=== PATIENT | male | born 1955 | race Two or more races ===

== ENCOUNTER 2021-08-12 12:41 | Outpatient (REF) | payer OTHER, SELFPAY ==
--- NOTE | ~2021-08-12 | XR_ITS ---
EXAMINATION: XR SHOULDER, RIGHT CLINICAL INFORMATION: Pain COMPARISON: None TECHNIQUE: AP external rotation, Grashey, scapular Y, and axillary views of the right shoulder. FINDINGS: Bone alignment is normal. No fracture or dislocation is seen. The glenohumeral joint is normal. There is arthritis at the acromioclavicular joint. There is a small undersurface osteophyte. Soft tissues are unremarkable. XR/XR shoulder RT min 2V IMPRESSION: Arthritis at the acromioclavicular joint.
== END 2021-08-12 12:42 | disposition home or self-care (01) ==
LOC: HO.XRAY 12:41
PROVIDERS: PCP Internal Medicine; Visit Provider Internal Medicine
DX: M25.511 Pain in right shoulder (principal)
CPT/HCPCS: 73030

== ENCOUNTER → 2021-09-16 12:30 | Outpatient (BNVA) | payer OTHER, SELFPAY | PROVIDERS: PCP Internal Medicine; Visit Provider Orthopaedic Surgery | DX: M67.911 Unspecified disorder of synovium and tendon, right shoulder (principal); M67.912 Unspecified disorder of synovium and tendon, left shoulder; M75.40 Impingement syndrome of unspecified shoulder; M17.0 Bilateral primary osteoarthritis of knee | CPT/HCPCS: 20610; 99202; J1100 ==

== ENCOUNTER → 2021-09-30 10:49 | Outpatient (BNVA) | payer OTHER, SELFPAY | PROVIDERS: PCP Internal Medicine; Visit Provider Orthopaedic Surgery | DX: M17.0 Bilateral primary osteoarthritis of knee (principal); M75.40 Impingement syndrome of unspecified shoulder | CPT/HCPCS: 20610; 99212; J1100 ==

== ENCOUNTER 2022-02-16 12:42 | Outpatient (REF) | payer OTHER, SELFPAY ==
--- NOTE | ~2022-02-16 | XR_ITS ---
EXAMINATION: XR SHOULDER, LEFT CLINICAL INFORMATION: Left shoulder pain. COMPARISON: None TECHNIQUE: Three views of the left shoulder. FINDINGS: The bones and soft tissues appear unremarkable. No fracture identified. Glenohumeral alignment is anatomic with normal joint space. Mild degenerative change of the acromioclavicular joint. No abnormal soft tissue calcifications. XR/XR shoulder LT min 2V IMPRESSION: Mild degenerative change of the acromioclavicular joint.
== END 2022-02-16 12:43 | disposition home or self-care (01) ==
LOC: HO.HOSX 12:42
PROVIDERS: Visit Provider Physician Assistant
DX: M19.011 Primary osteoarthritis, right shoulder (principal); M19.012 Primary osteoarthritis, left shoulder
CPT/HCPCS: 20610; 73030; 99212; J1020

== ENCOUNTER 2022-05-11 11:46 | Outpatient (REF) | payer MEDICARE, OTHER, SELFPAY ==
--- NOTE | ~2022-05-11 | XR_ITS ---
EXAMINATION: XR SHOULDER, RIGHT CLINICAL INFORMATION: Pain. COMPARISON: None TECHNIQUE: AP external rotation, Grashey, scapular Y, and axillary views of the right shoulder. FINDINGS: The bones and soft tissues are normal. No fracture. Glenohumeral and acromioclavicular joint arthritis. No abnormal soft tissue calcifications. XR/XR shoulder RT min 2V IMPRESSION: Glenohumeral and acromioclavicular arthritis.
== END 2022-05-11 11:47 | disposition home or self-care (01) ==
LOC: HO.XRAY 11:46
PROVIDERS: PCP Internal Medicine; Visit Provider Student in an Organized Health Care Education/Training Program
DX: M25.511 Pain in right shoulder (principal)
CPT/HCPCS: 73030

== ENCOUNTER → 2022-05-18 11:44 | Outpatient (BNVA) | payer MEDICARE, MEDICAID, OTHER, SELFPAY | PROVIDERS: PCP Internal Medicine; Visit Provider Physician Assistant | DX: M19.011 Primary osteoarthritis, right shoulder (principal); M25.511 Pain in right shoulder | CPT/HCPCS: 99212 ==

== ENCOUNTER → 2022-06-06 11:50 | Outpatient (BNVA) | payer MEDICARE, OTHER, SELFPAY | PROVIDERS: PCP Internal Medicine; Visit Provider Orthopaedic Surgery | DX: M75.40 Impingement syndrome of unspecified shoulder (principal); M19.012 Primary osteoarthritis, left shoulder; M19.011 Primary osteoarthritis, right shoulder; E78.00 Pure hypercholesterolemia, unspecified | CPT/HCPCS: 20610; 99212; J1100 ==

== ENCOUNTER 2022-06-15 12:21 | Outpatient (REF) | payer MEDICARE, OTHER, SELFPAY ==
--- NOTE | 2022-06-15 10:00 | EMG_ITS ---
Please see scanned EMG / Nerve Conduction Report. MTDD
== END 2022-06-15 12:22 | disposition home or self-care (01) ==
LOC: HO.NEURO 12:21
PROVIDERS: PCP Internal Medicine; Visit Provider Registered Nurse
DX: R20.0 Anesthesia of skin (principal)
CPT/HCPCS: 95885; 95910

== ENCOUNTER → 2022-06-16 07:45 | Outpatient (BNVA) | payer MEDICARE, OTHER, SELFPAY | PROVIDERS: PCP Internal Medicine; Visit Provider Orthopaedic Surgery | DX: M17.0 Bilateral primary osteoarthritis of knee (principal); M75.41 Impingement syndrome of right shoulder; E78.00 Pure hypercholesterolemia, unspecified | CPT/HCPCS: 20610; 99212; J1100 ==

== ENCOUNTER 2022-07-06 11:00 | Outpatient (RCR) | payer MEDICARE, MEDICAID, OTHER, SELFPAY ==
--- NOTE | 2022-06-15 10:35 | MHC.PT.EP ---
[facility] [place] Office [place] Office [place] Office [address] Sridevi Velázquez [address] [phone] F: [phone] F: [phone] F: [phone] F: [phone] Physical Therapy Plan of Care Date of Evaluation: Date of Surgery: Diagnosis: Rt SH IMPINGEMENT Assessment: 66 YO MALE REF TO PT W Rt SH IMPINGEMENT SYNDROME- HE CURRENTLY WORKS 2 PART-TIME JOBS (TOTALLING 40 HRS/WK) AT LOCAL [employer]. Pt IS Rt HAND DOMINANT. OBJECTIVE FINDINGS: DECR POSTURE AWARENESS, WEAKNESS IN POST RC/ SCAP MM, LIMITED ROM Rt SH , (+) IMPINGEMENT SIGN Rt SH, (+) SOFT TISSUE IRRIT RT ANT GH/ UT, AND PAIN IN RT ANT GH/ BICIPITAL TENDON REGION. FUNCTIONALLY, Pt IS LIMITED W SLEEPING- ESPEC Rt SL, LIFTING OBJECTS AT WORK, REACHING POSTERIORLY OR W OVERHEAD TASKS. Pt WOULD BENEFIT FROM PT TO ADDRESS THE ABOVE FINDINGS, EASE SOFT TISSUE IRRIT/ PAIN MGMT, AND DEV A PROGR HEP/ SX MGMT TECHN. Frequency and Duration: The patient will be seen 2x WK x 5 WKS Short Term Goals: *DECREASE Pt'S Rt SH PAIN TO A 2-3/10 *IMPROVE POSTURAL AWARENESS / BODY MECH TO REDUCE GH/ CERV STRESS *Pt DEMON WFL AROM Rt SH, W ADEQUATE SCAPULAR RETR/PROTRACTION *(-) Rt SH NEER'S AND HAWKIN'S SIGNS Rt SH Coat Joiner Goals: *Pt INDEP W PROGR HEP AND SELF-SX MGMT TECHN *Pt RESUME REG ADLs / WORK TASKS EVIDENT W IMPROVED SPADI SCORE BY 20 POINTS (AT EVAL 128/130) *Pt IMPROVE Rt SH COMPLEX STRENGTH Treatment Plan: Modalities to reduce pain, spasms and effusion. Manual therapy to restore motion and function. Therapeutic exercise to improve strength and flexibility. Neuromuscular re-education for posture and balance. Therapeutic activities to return to functional activities of daily living. Electronically signed by: TAHMINA LANDRY,PT Please sign and return to therapist. Thank you for your referral.
--- NOTE | 2022-07-26 09:19 | MHC.PT.DC ---
[facility] [place] Office [place] Office [place] Office [address] Christy Velázquez [address] [phone] F: [phone] F: [phone] F: [phone] F: [phone] Physical Therapy Discharge Report Diagnosis: Rt SH IMPINGEMENT Date of Surgery: Date of Evaluation: 06/15/22 Date of Discharge: 07/26/22 Treatments to Date: 6 Cancellations to Date: 3 No Shows to Date: 3 Discharge Status: Improved Function Independent with HEP Visit Non-compliance Discharge Summary: THE Pt RESPONDED WELL TO PT INTERVENTION, INCLUDING MAN TECHN / STM, KT APPLIC FOR POSTURAL FEEDBACK/ SOFT TISSUE EASE AND BODY MECHANICS ED TO REDUCE SHOULDER STRESS W WORK SITE TASKS- THE Pt DEMON IMPROVED Rt SH AROM AND NOTED HE COULD BREATHE BETTER AFTER TREATMENTS/ MORE MOBILE IN HIS THORACIC REGION- HE HAS A THOROUGH HEP AND WAS COMPLIANT WITH IT AT LAST ATTENDED APPT- THE Pt HAS NOT ATTENDED LAST FEW SCHED PT APPTS, DESPITE OUR PHONE CALL REMINDERS. Electronically signed by: TAHMINA LANDRY,PT Please sign and return to therapist. Thank you for your referral.
== END 2022-07-26 09:19 | disposition home or self-care (01) ==
LOC: HO.PT 11:00
PROVIDERS: PCP Internal Medicine; Visit Provider Orthopaedic Surgery
DX: M75.40 Impingement syndrome of unspecified shoulder (principal)
CPT/HCPCS: 97035; 97110; 97140; 97162

== ENCOUNTER → 2022-09-26 08:57 | Outpatient (BNVA) | payer OTHER, SELFPAY | PROVIDERS: PCP Internal Medicine; Visit Provider Orthopaedic Surgery | DX: M17.0 Bilateral primary osteoarthritis of knee (principal); M25.511 Pain in right shoulder; M25.512 Pain in left shoulder | CPT/HCPCS: 20610; 99212; J1100 ==

== ENCOUNTER 2023-09-18 08:21 | Outpatient (REF) | payer OTHER, SELFPAY | END 2023-09-18 08:22 | disposition home or self-care (01) | LOC: HO.HOSX 08:21 | PROVIDERS: Visit Provider Orthopaedic Surgery | DX: Z13.89 Encounter for screening for other disorder (principal) ==

== ENCOUNTER 2023-10-30 10:49 | Outpatient (AMB) | payer MEDICARE, SELFPAY ==
--- NOTE | 2023-10-30 11:30 | MHC.OFFVIS ---
Intake Visit Reasons: OV - Bilateral Knee OA - Last Injection 09/26/22 Intake Note: Eldon is a 68 year old male who presents today for a follow up of his bilateral knee OA w/ Varus alignment. Last injections done in bilateral knees on 09/26/22. Allergies No Known Allergies [No Known Allergies*] Allergy (Verified 09/26/22 09:07) HPI HPI OV - Bilateral Knee OA - Last Injection 09/26/22: Details: Eldon is a 68 year old male who presents today for a follow up of his bilateral knee OA w/ Varus alignment. Last injections done in bilateral knees on 09/26/22. 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 Physical Exam Const General: no acute distress and alert Orientation/consciousness: patient oriented x3 Neuro General: patient oriented x3 Extrem Other: Bilateral Knees: Mild-moderate TTP medial compartment Mild antalgic gait Psych Appearance: grossly normal Affect: normal affect Attitude: cooperative Office Procedures Joint Injection/Drain Joint Injection/Drain Details: Injected 1 mL of Decadron and 3 mL 1% lidocaine and 3 mL of 0.25% Marcaine. Site was prepped using aseptic technique. Patient tolerated the procedure well. Primary Site: right knee Secondary Site: left knee Approach Used: anterolateral Coding - Large joint - Glenohumeral/Tronchanteric Bursa/Intraarticular Procedure code (CPT) selection complete Assessment & Plan Assessment & Plan (1) Osteoarthritis of knees, bilateral: Code(s): M17.0 - Bilateral primary osteoarthritis of knee Category: Medical Plan: This is a 66 year old man with severe bilateral tricompartmental knee OA with chondrocalcinosis and a varus alignment. He had good relief from his steroid injection in the past.. He has pain primarily with prolonged weight-bearing, and he has reduced his workload to accommodate for this. He is planning to retire later this summer. I discussed his diagnosis and treatment options. I recommend repeat injections and he continue activity as tolerated. I injected his bilateral knees today, which he tolerated well. He can follow up prn, at least 3 months for repeat injections. Orders: Orders XR knee standing BI 09/18/23 M25.569 - Pain in unspecified knee XR knee RT 2V 09/18/23 M25.569 - Pain in unspecified knee XR knee LT 2V 09/18/23 M25.569 - Pain in unspecified knee Coding Level of Care Code Est Pt Level 3 (55649) Diagnoses Osteoarthritis of knees, bilateral M17.0 CPT Codes Coding - 60037 Large joint: 75857 - Large joint ([id number]) Coding - Joint 7: 18832 - Glenohumeral/Tronchanteric Bursa/Intraarticular ([id number])
== END 2023-10-30 11:31 | disposition home or self-care (01) ==
PROVIDERS: PCP Internal Medicine; Visit Provider Orthopaedic Surgery
DX: M17.0 Bilateral primary osteoarthritis of knee (principal)
CPT/HCPCS: 20610; 99213

== ENCOUNTER → 2023-10-30 10:49 | Outpatient (BNVA) | payer OTHER, SELFPAY | PROVIDERS: PCP Internal Medicine; Visit Provider Orthopaedic Surgery | DX: M17.0 Bilateral primary osteoarthritis of knee (principal) | CPT/HCPCS: 20610; 99212; J0665; J1100 ==

== ENCOUNTER 2023-10-30 13:49 | Outpatient (AMB) | payer MEDICARE, SELFPAY ==
--- NOTE | 2023-10-30 13:56 | A.OFFVIS_ITS ---
Vital Signs 10/30/23 13:57 Height 5 ft 2.5 in Weight 138 lb 14.259 oz BMI 25.0 Intake Visit Reasons: Epigastric Pains Intake Note: Eldon presents in the office as a new patient for epigastric pains. CC: He is here today for pains in the stomach, cannot eat things with milk - he tries lactaid and now he will have pains and diarrhea - lots of diarrhea. Bloating in the middle of the stomach. He denies any blood in the stool. Nutrition Associate Required: Yes Nutrition Associate Name: [id number] Allergies Fish Containing Products Allergy (Mild, Verified 10/30/23 13:59) Rash HPI Comments Details: 68 y.o M who is here for abd pain and change in bowel habits. Pt reports that for the past 4-5 months every time he eats anything within 15 mins he has R lower side and epigastric pain that is stabbing and twisting assoc with nausea and vomiting. He also has an urge to defecate right away and BMs have been loose. Goes 2-3 times a day. No blood in stool. Reports weight loss of 20 lbs in this duration. Has history of travel to [facility] almost 6 months ago. Last colo 2019 (Dr. Sow) 3 polyps removed. Diverticulosis. 2/3 tubular adenoma. 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 Review of Systems Const All systems reviewed & are unremarkable except as noted in HPI and below Physical Exam Vital Signs: BMI result Body Mass Index 25.0 No apparent distress Nonicteric Abdomen soft, nondistended Alert and oriented x3, normal gait Assessment & Plan Assessment & Plan (1) Chronic diarrhea: Code(s): K52.9 - Noninfective gastroenteritis and colitis, unspecified Category: Medical (2) Unintentional weight loss: Code(s): R63.4 - Abnormal weight loss Category: Medical (3) Abdominal pain: Code(s): R10.9 - Unspecified abdominal pain Category: Medical Plan Differentials include chronic mesenteric ischemia, chronic infection, celiac, IBD, microscopic colitis, malignancy. Plan: -labs ordered as below to evaluate the above -CT angio abdomen pelvis to evaluate mesenteric vasculature -we will also check stool ova and parasite x3 given history of travel right befo re symptom onset -EGD and colonoscopy to be booked for luminal evaluation. PEG prep prescribed and instructions reviewed with the patient as well as his accompanying him. Follow-up after procedures Orders: Orders CT angio abdomen pelvis 10/30/23 R10.9 - Unspecified abdominal pain, R63.4 - Abnormal weight loss Comprehensive Met. Panel 10/30/23 R63.4 - Abnormal weight loss Hepatitis A IgG 10/30/23 R63.4 - Abnormal weight loss Hepatitis B Core Antibody 10/30/23 R63.4 - Abnormal weight loss Hepatitis B Surface Antibody 10/30/23 R63.4 - Abnormal weight loss HIV Ab/Ag 10/30/23 R63.4 - Abnormal weight loss Immunoglobulin A 10/30/23 R63.4 - Abnormal weight loss TSH reflex Free T4 10/30/23 R63.4 - Abnormal weight loss Hemoglobin A1c 10/30/23 R63.4 - Abnormal weight loss IRON PROFILE 10/30/23 R63.4 - Abnormal weight loss Ferritin 10/30/23 R63.4 - Abnormal weight loss Calprotectin, Fecal 10/30/23 R63.4 - Abnormal weight loss Ova and Parasite 10/30/23 K52.9 - Noninfective gastroenteritis and colitis, unspecified Ova and Parasite 10/31/23 K52.9 - Noninfective gastroenteritis and colitis, unspecified Complete Blood Count no Diff 10/30/23 R63.4 - Abnormal weight loss Hepatitis B Surface Antigen 10/30/23 R63.4 - Abnormal weight loss Hepatitis C Antibody 10/30/23 R63.4 - Abnormal weight loss Transglutaminase IgA 10/30/23 R63.4 - Abnormal weight loss C Reactive Protein 10/30/23 R63.4 - Abnormal weight loss Ova and Parasite 11/01/23 K52.9 - Noninfective gastroenteritis and colitis, unspecified Medications: New peg 3350-electrolytes 236-22.74-6.74 -5.86 gram (Golytely) as per split prep instructions, until fecal effluent is clear 240 mL PO Q10M 4,000 mL 0RF colonoscopy Coding Level of Care Code New Pt Level 4 (68790) Diagnoses Chronic diarrhea K52.9 Unintentional weight loss R63.4 Abdominal pain R10.9
[2023-10-30 13:57] VITALS: BMI 25.0
== END 2023-10-30 15:30 | disposition home or self-care (01) ==
PROVIDERS: PCP Internal Medicine; Visit Provider Internal Medicine
DX: K52.9 Noninfective gastroenteritis and colitis, unspecified (principal); R63.4 Abnormal weight loss
CPT/HCPCS: 99204

== ENCOUNTER 2023-10-30 15:00 | Outpatient (REF) | payer MEDICARE, MEDICAID, SELFPAY ==
[2023-10-30 16:15] LABS: Hematocrit 42.4 % (42.0-52.0); Hemoglobin 15.5 g/dl (14.0-18.0); Mean Corpuscular HGB Conc 36.6 g/dl (31.0-36.0); Mean Corpuscular Hemoglobin 31.9 pg (27.0-33.0); Mean Corpuscular Volume 87.2 fL (80.0-98.0); Mean Platelet Volume 9.6 fL (9.4-12.4); Platelet Count 237 X10*3/uL (160-400); Red Blood Count 4.86 X10*6/uL (4.60-5.80); Red Cell Distribution Width 13.2 % (11.0-16.0); White Blood Count 7.8 X10*3/uL (4.8-10.8)
[2023-10-30 16:41] LABS: Estimated Average Glucose 103 mg/dL; Hemoglobin A1c % 5.2 % (<6.0)
[2023-10-30 16:55] LABS: Alanine Aminotransferase 22 U/L (0-40); Albumin Level 4.6 g/dL (3.5-5.0); Alkaline Phosphatase 133 U/L (39-117); Anion Gap 12 (12-20); Aspartate Amino Transferase 18 U/L (5-37); Bilirubin Total 0.6 mg/dL (0.0-1.0); Blood Urea Nitrogen 22 mg/dL (9-16); C Reactive Protein 0.12 mg/dL (< or = 0.50); Calcium 9.7 mg/dL (8.4-10.2); Carbon Dioxide 25 mmol/L (22-29); Chloride 107 mmol/L (96-108); Estimated Glomerular Filt Rate > 60; Glucose Random 128 mg/dL (60-115); Iron 62 mcg/dL (45-160); Percent Iron Saturation 27 % (15-50); Potassium 4.1 mmol/L (3.3-5.1); Sodium 140 mmol/L (135-145); Total Iron Binding Capacity 233 mcg/dL (228-428); Total Protein 7.8 g/dL (6.5-8.0); Unsaturated Iron Binding 171 ug/dL
[2023-10-30 17:06] LABS: Ferritin 119 ng/mL (20-250); TSH reflex Free T4 0.63 uIU/mL (0.32-4.0)
[2023-10-31 05:22] LABS: HBS Num1 0.71 mIU/mL (0-7.99); HBsAGNum1 0.36 S/CO (0.00-0.99); HIV AB/AG Nonreactive (Nonreactive); HIV Num 1 0.06 S/CO (0.00-0.99); Hepatitis B Core Antibody Nonreactive (Nonreactive); Hepatitis B Surface Antigen Negative (Negative); ~HepC Num1 0.17 S/CO (0.00-0.79); ~Hepatitis B Surface Antibody NONREACTIVE (Nonreactive); ~Hepatitis C Antibody Nonreactive (Nonreactive)
[2023-10-31 05:30] LABS: Hepatitis A Antibody IgG REACTIVE (Nonreactive); ~Hepatitis A Antibody IgG 9.35 S/CO (0.00-0.99)
[2023-11-01 14:23] LABS: Immunoglobulin A 215 mg/dL (70-320)
[2023-11-01 20:09] LABS: Transglutaminase IgA <1.0 U/mL
== END 2023-10-30 15:01 | disposition home or self-care (01) ==
LOC: HO.LAB 15:00
PROVIDERS: PCP Internal Medicine; Visit Provider Internal Medicine
DX: R63.4 Abnormal weight loss (principal); R10.13 Epigastric pain; K52.9 Noninfective gastroenteritis and colitis, unspecified
CPT/HCPCS: 36415; 80053; 82728; 82784; 83036; 83540; 84443; 85027; 86140; 86364; 86704; 86706; 86708; 86803; 87340; 87389; 99202

== ENCOUNTER 2024-03-04 13:13 | Outpatient (REF) | payer MEDICARE, SELFPAY | END 2024-03-04 13:14 | disposition home or self-care (01) | LOC: HO.LNP 13:13 | PROVIDERS: Visit Provider Internal Medicine | DX: K52.9 Noninfective gastroenteritis and colitis, unspecified (principal) | CPT/HCPCS: 87177; 87209 ==

== ENCOUNTER 2024-03-05 13:19 | Outpatient (REF) | payer MEDICARE, SELFPAY | END 2024-03-05 13:20 | disposition home or self-care (01) | LOC: HO.LNP 13:19 | PROVIDERS: Visit Provider Internal Medicine | DX: K52.9 Noninfective gastroenteritis and colitis, unspecified (principal) | CPT/HCPCS: 87177; 87209 ==

== ENCOUNTER 2024-03-06 13:20 | Outpatient (REF) | payer MEDICARE, SELFPAY | END 2024-03-06 13:21 | disposition home or self-care (01) | LOC: HO.LNP 13:20 | PROVIDERS: Visit Provider Internal Medicine | DX: K52.9 Noninfective gastroenteritis and colitis, unspecified (principal) | CPT/HCPCS: 87177; 87209 ==

== ENCOUNTER 2024-03-20 12:48 | Outpatient (REF) | payer MEDICARE, SELFPAY ==
[2024-03-26 23:13] LABS: Calprotectin, Fecal 83 mcg/g
== END 2024-03-20 12:49 | disposition home or self-care (01) ==
LOC: HO.LNP 12:48
PROVIDERS: Visit Provider Internal Medicine
DX: R63.4 Abnormal weight loss (principal)
CPT/HCPCS: 83993

== ENCOUNTER 2024-04-02 09:37 | Day surgery (SDC) | payer MEDICARE, SELFPAY ==
--- NOTE | 2024-04-02 10:33 | MHC.SHP ---
Pre-Procedural Eval Section A - 24 Hr Update-Section A only Date of Service: 04/02/24 Section B - Complete if H&P > 30 days Chief Complaint: Noninfective gastroenteritis and colitis, unspecif Details of Present Illness: High cholesterol Present Medications: see Short Stay Collaborative assessment Allergies: Allergies Allergy/AdvReac Type Severity Reaction Status Date / Time Fish Containing Products Allergy Mild Rash Verified 10/30/23 13:59 Review of Systems Review of Systems Comment: Ten point ROS negative Exam Exam Comment: Gen appear: No acute distress HEENT: no icterus Chest: No overt resp distress Abd: soft, nontender, nondistended Psych: Stable affect, answering questions appropriately Neuro: A/Ox3 noted to move all extremities spontaneously Ext: no peripheral edema Plan Diagnosis/Plan: Unchanged I have reviewed the history and physical and performed a pertinent physical examination on my patient. No changes have occurred unless specified. Time Spent With Patient Time: Total time managing care of this patient today ____ minutes.
--- NOTE | 2024-04-02 11:20 | HO.ANESPROP2 ---
Documented by User: Alejandra Tiwari NP 04/01/24 09:40 HPI - Anesthesia Eval Consult details Narrative: 68yo M for Upper Endoscopy and Colonoscopy [facility] Active Problems Active Problems: All Active Problems Chronic diarrhea (Acute) Unintentional weight loss (Acute) Abdominal pain (Acute) Arthritis of right glenohumeral joint (Acute) Snoring (Acute) Dermatitis (Acute) Allergic rhinitis (Acute) Chronic pain syndrome (Acute) Hypertension (Acute) High cholesterol (Acute) Osteoarthritis of knees, bilateral (Acute) Shoulder impingement syndrome (Acute) Osteoarthritis of shoulders, bilateral (Acute) Past Medical History Medical History High cholesterol Surgical History Surgical History Hx of colonoscopy Social History Social History Are you a primary child care leader to a significant other at home: No Do you presently have visiting nurse or other home services: No Patient Tobacco Use Status: Never used Tobacco Have you been hit, kicked, punched, or otherwise hurt by someone within the past year? 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 Meds Allergies Allergy/AdvReac Type Severity Reaction Status Date / Time Fish Containing Products Allergy Mild Rash Verified 10/30/23 13:59 Home Medications ?Medication ?Instructions ?Recorded ?Confirmed ?Last Taken ?Type acetaminophen 650 mg 1,300 mg PO Q8H PRN Pain, Moderate 09/16/21 04/02/24 Unknown History tablet,extended release (Arthritis Pain Relief (acetaminophen) ER) atorvastatin 20 mg tablet 20 mg PO DAILY 09/16/21 04/02/24 Unknown History carbamide peroxide 6.5 % ear drops 5 drp otic (ears) BID 09/16/21 04/02/24 Unknown History (Ear Drops (carbamide peroxide)) ergocalciferol (vitamin D2) 1,250 1,250 mcg PO QWEEK 09/16/21 04/02/24 Unknown History mcg (50,000 unit) capsule famotidine 20 mg tablet 20 mg PO BID 09/16/21 04/02/24 Unknown History sildenafil 50 mg tablet (Viagra) 50 mg PO DAILY PRN Erectile 09/16/21 04/02/24 Unknown History Dysfunction cholecalciferol (vitamin D3) 25 25 mcg PO DAILY PRN deficit 10/30/23 04/02/24 Unknown History mcg (1,000 unit) capsule (Vitamin D3) cyclobenzaprine 10 mg tablet 10 mg PO BID PRN Muscle Spasm 10/30/23 04/02/24 Unknown History omeprazole 40 mg capsule,delayed 40 mg PO BID 10/30/23 04/02/24 Unknown History release Assessment and Plan Assessment Anesthesia Assessment: Chart Reviewed Documented by User: Lore Flores DO 04/02/24 11:30 [facility] Past Medical History Medical History High cholesterol Family History Family history of problems with anesthesia: No Surgical History Surgical History Hx of colonoscopy History of Problems with Anesthesia: No Social History Social History Are you a primary child care leader to a significant other at home: No Do you presently have visiting nurse or other home services: No Patient Tobacco Use Status: Never used Tobacco Have you been hit, kicked, punched, or otherwise hurt by someone within the past year? 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 Meds Allergies Allergy/AdvReac Type Severity Reaction Status Date / Time Fish Containing Products Allergy Mild Rash Verified 10/30/23 13:59 Home Medications ?Medication ?Instructions ?Recorded ?Confirmed ?Last Taken ?Type acetaminophen 650 mg 1,300 mg PO Q8H PRN Pain, Moderate 09/16/21 04/02/24 Unknown History tablet,extended release (Arthritis Pain Relief (acetaminophen) ER) atorvastatin 20 mg tablet 20 mg PO DAILY 09/16/21 04/02/24 Unknown History carbamide peroxide 6.5 % ear drops 5 drp otic (ears) BID 09/16/21 04/02/24 Unknown History (Ear Drops (carbamide peroxide)) ergocalciferol (vitamin D2) 1,250 1,250 mcg PO QWEEK 09/16/21 04/02/24 Unknown History mcg (50,000 unit) capsule famotidine 20 mg tablet 20 mg PO BID 09/16/21 04/02/24 Unknown History sildenafil 50 mg tablet (Viagra) 50 mg PO DAILY PRN Erectile 09/16/21 04/02/24 Unknown History Dysfunction cholecalciferol (vitamin D3) 25 25 mcg PO DAILY PRN deficit 10/30/23 04/02/24 Unknown History mcg (1,000 unit) capsule (Vitamin D3) cyclobenzaprine 10 mg tablet 10 mg PO BID PRN Muscle Spasm 10/30/23 04/02/24 Unknown History omeprazole 40 mg capsule,delayed 40 mg PO BID 10/30/23 04/02/24 Unknown History release Exam Exam Date and Time: 04/02/24 1125 Height,Weight and Vital Signs: Height 5 ft 2.5 in Weight 60.781 kg Airway Mallampati Class: II TM Dist: >3cm Neck ROM: Full Denture: Upper and Lower Heart: S1S2 Lungs: CTAB Assessment and Plan Assessment Anesthesia Assessment: Anesthesia Plan Discussed and Chart Reviewed Final Anesthetic Review Family History of Problems with Anesthesia: No History of Problems with Anesthesia: No NPO: Yes ASA Class: II Final Preanesthetic Review: No Changes in Pt Med Stat, Meds/Allgs Chart Reviewed, Consent Obtained/Reviewed (fundraising consultant at bedside for translation) and Anes Risks/Benef Reviewed Patient Risk: Low Procedure Risk: Low Anesthetic Plan Anesthetic Plan: MAC: and Agree w/ Assess. and Plan Disposition: Standard PACU
[2024-04-02 11:23] VITALS: BMI 24.1
[2024-04-02] MEDS: Lactated Ringers 1,000 ML 100 ML IVCONT (11:26)
[2024-04-02 11:37] VITALS: BP 138/76; PULSE 64; RESP 18; TEMP 36.6; O2SAT 99
--- NOTE | 2024-04-02 12:46 | P.OPN-COLO_ITS ---
Colonoscopy Operative Note Operative Note Date of Service: 04/02/24 Narrative: Procedure: Upper endoscopy and colonoscopy Indication: Abd pain, chronic diarrhea, weight loss Endoscopist: Aarti Bellamy MD Anesthesia Provider: Vi Marsh CRNA Anesthesia type: MAC Instrument: [id number] and [id number] EGD Procedure:?? The procedure, indications, preparation and potential complications were reviewed with the patient with the help of a cigar inspector, who indicated understanding and gave written informed consent to proceed. The endoscope was introduced through the mouth, and advanced to the 2nd part of the duodenum. The mucosa was carefully examined on slow withdrawal of the endoscope. The patient tolerated the procedure well. There were no immediate complications.? EGD Findings:? * Esophagus:? Normal esophageal mucosa was noted. The Z-line was at 36 cm. There was a small hiatal hernia with diaphragmatic pinch at 38 cm. Cold forceps biopsies were taken from GE junction. * Stomach:? Normal gastric mucosa. Retroflexion was performed in the cardia that showed Hill grade II hiatal hernia. Random cold forceps biopsies were taken from the stomach. * Duodenum:? Normal duodenal mucosa. Cold forceps biopsies were taken from the duodenal bulb and 2nd portion of the duodenum to rule out celiac sprue. Colonoscopy Procedure:? The patient was then turned for the colonoscopy. A digital rectal exam was performed which was normal.? A distal attachment cap was affixed to the tip of the scope and the colonoscope was then inserted through the anus and advanced through the colon and advanced to the cecum at 80 cm and terminal ileum.? Appendiceal orifice and ileocecal valve were identified. Mucosa was carefully examined under high definition white light as the instrument was slowly withdrawn in a retrograde panoramic fashion. Retroflexion was performed in rectum. The procedure was not difficult. The quality of the prep was BBPS: 2+3+3 = adequate Withdrawal time 7 minutes Limitations: No limitations Findings: Mucosa: Normal colon and terminal ileum mucosa. Cold forceps biopsies were taken from the right and left side of the colon to rule out microscopic colitis. Protruding lesions: * Small internal hemorrhoids without stigmata of recent bleeding. Impression: 1. Normal esophagus (biopsy) 2. Normal stomach (biopsy) 3. Normal duodenum (biopsy) 4. Normal colon and terminal ileum mucosa (biopsy) 5. Internal hemorrhoids Recommendations:?? * Follow-up path results * Avoid NSAIDs * Repeat colonoscopy for CRC screening in 10 years.
[2024-04-02 12:48] VITALS: BP 100/55; PULSE 71; RESP 16; TEMP 36.1; O2SAT 96
[2024-04-02 13:03] VITALS: BP 122/68; PULSE 63; RESP 18; TEMP 36.3; O2SAT 98
== END 2024-04-02 13:31 | disposition home or self-care (01) ==
PROVIDERS: Visit Provider Internal Medicine
PROC: (CPT 43239; principal; 2024-04-02 13:10)
DX: K52.9 Noninfective gastroenteritis and colitis, unspecified (principal); K44.9 Diaphragmatic hernia without obstruction or gangrene; R63.4 Abnormal weight loss; R19.4 Change in bowel habit; K64.8 Other hemorrhoids; I10 Essential (primary) hypertension; E78.00 Pure hypercholesterolemia, unspecified
CPT/HCPCS: 43239; 45380; 88305; 88313; 88342; J1100; J1596; J2003; J2704

== ENCOUNTER → 2024-04-02 09:37 | Outpatient (BNV) | payer MEDICARE, SELFPAY | PROVIDERS: Visit Provider Internal Medicine | DX: R10.9 Unspecified abdominal pain (principal); K52.9 Noninfective gastroenteritis and colitis, unspecified; K64.8 Other hemorrhoids; R63.4 Abnormal weight loss | CPT/HCPCS: 43239; 45380 ==

== ENCOUNTER 2024-04-17 12:30 | Outpatient (AMB) | payer MEDICARE, SELFPAY ==
--- NOTE | 2024-04-17 12:38 | MHC.OFFVIS ---
Vital Signs 04/17/24 12:42 Height 5 ft Weight 140 lb BMI 27.3 BP 149/71 H Blood Pressure Location Lt brachial Position Sitting Pulse 62 Intake Visit Reasons: egd/colo Intake Note: Patient follow up for ED/Colonoscopy results. Patient cc; abdominal pain with some diarrhea on and off. Denies any other GI issues for today visit. Assessment Analyst Required: Yes Accompanied by: Self / Same As Patient Allergies Fish Containing Products Allergy (Mild, Verified 04/17/24 12:37) Rash HPI Comments Details: 68 y.o M who is here for abd pain and change in bowel habits. Pt reports that for the past 4-5 months every time he eats anything within 15 mins he has R lower side and epigastric pain that is stabbing and twisting assoc with nausea and vomiting. He also has an urge to defecate right away and BMs have been loose. Goes 2-3 times a day. No blood in stool. Reports weight loss of 20 lbs in this duration. Has history of travel to [place] almost 6 months ago. Last colo 2018 (Dr. Sow) 3 polyps removed. Diverticulosis. 2/3 tubular adenoma. 04/02/24: 1. Normal esophagus (biopsy) 2. Normal stomach (biopsy) 3. Normal duodenum (biopsy) 4. Normal colon and terminal ileum mucosa (biopsy) 5. Internal hemorrhoids A. Duodenum, biopsy: Duodenal mucosa with mildly increased intraepithelial lymphocytes and preserved villous architecture. See comment. B. Stomach, random, biopsy: - Antral-type and oxyntic mucosa with severe chronic active inflammation and focal intestinal metaplasia; negative for dysplasia. - Positive for H pylori. C. GE junction, biopsy: - Cardiac-type mucosa with moderate chronic active inflammation; no intestinal metaplasia seen. - Squamous mucosa within normal limits. D. Colon, right, biopsy: Colonic mucosa within normal limits. E. Colon, left, biopsy: Colonic mucosa within normal limits. Comment: The lymphocytes in the duodenum are likely secondary to the H. pylori infection. 04/17/2024: Seen with the help of stain sprayer. Results of EGD.colo reviewed. Reviewed indication for H Pylori tx given age, ethnicity and presence of focal 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 Review of Systems Const All systems reviewed & are unremarkable except as noted in HPI and below Physical Exam Vital Signs: Last Vital Signs Pulse 62 04/17/24 12:42 BP 149/71 H 04/17/24 12:42 BMI result Body Mass Index 27.3 No apparent distress Nonicteric Abdomen soft, nondistended Alert and oriented x3, normal gait Assessment & Plan Assessment & Plan (1) H. pylori infection: Code(s): A04.8 - Other specified bacterial intestinal infections Category: Medical (2) Abdominal pain: Code(s): R10.9 - Unspecified abdominal pain Category: Medical (3) Gastritis: Code(s): K29.70 - Gastritis, unspecified, without bleeding Category: Medical (4) Intestinal metaplasia of body of stomach without dysplasia: Code(s): K31.A12 - Gastric intestinal metaplasia without dysplasia, involving the body (corpus) Category: Medical (5) Colon cancer screening: Code(s): Z12.11 - Encounter for screening for malignant neoplasm of colon Category: Medical Plan # Discussed indication for tx. Pt will be prescribed quad therapy as below x 14 days followed by test of cure. Plan: - Omeprazole 40mg BID - Tetracycline 500mg QID - Metronidazole 250mg QID - Bismuth Subsalicylate 524mg QID - Written instructions also provided to the pt ( at home can help with instructions in Mozambican) - KARISHMA to be booked 2-3 weeks AFTER completing the above therapy. # No polyps noted on colo. Next colo due in 10 years i.e 2033. Follow up PRN if KARISHMA negative. Medications: New omeprazole 20 mg PO BID 28 caps 0RF 14 days bismuth subsalicylate 2 tabs PO QID 112 tabs 0RF 14 days tetracycline 500 mg PO QID 56 caps 0RF 14 days metronidazole 250 mg PO QID 56 tabs 0RF 14 days Patient Instructions: 14 days of therapy (should not start any of these until has ALL 4 meds filled) : - Omeprazole 40mg BID - Tetracycline 500mg 4 times a day (avoid sunburn while taking) - Metronidazole 250mg 4 times a day (avoid all alcohol while taking, can take with food to avoid nausea) - Bismuth Subsalicylate 524mg 4 times a day (may turn stools black) Coding Level of Care Code Est Pt Level 4 (16796) Diagnoses H. pylori infection A04.8 Abdominal pain R10.9 Gastritis K29.70 Intestinal metaplasia of body of stomach without dysplasia K31.A12 Colon cancer screening Z12.11
[2024-04-17 12:42] VITALS: BP 149/71; PULSE 62; BMI 27.3
== END 2024-04-17 13:12 | disposition home or self-care (01) ==
PROVIDERS: PCP Internal Medicine; Visit Provider Internal Medicine
DX: A04.8 Other specified bacterial intestinal infections (principal); R10.9 Unspecified abdominal pain; K29.70 Gastritis, unspecified, without bleeding; K31.A12 Gastric intestinal metaplasia without dysplasia, involving the body (corpus); Z12.11 Encounter for screening for malignant neoplasm of colon
CPT/HCPCS: 99214

== ENCOUNTER → 2024-04-17 12:30 | Outpatient (BNVA) | payer MEDICARE, SELFPAY | PROVIDERS: PCP Internal Medicine; Visit Provider Internal Medicine | DX: Z12.11 Encounter for screening for malignant neoplasm of colon (principal); K31.A12 Gastric intestinal metaplasia without dysplasia, involving the body (corpus); K29.70 Gastritis, unspecified, without bleeding; R10.9 Unspecified abdominal pain; A04.8 Other specified bacterial intestinal infections | CPT/HCPCS: 99212 ==

== ENCOUNTER 2024-05-30 08:49 | Outpatient (REF) | payer MEDICARE, SELFPAY ==
[2024-05-31 11:56] LABS: H Pylori Breath Test Negative (Negative)
== END 2024-05-30 08:50 | disposition home or self-care (01) ==
LOC: HO.LNP 08:49
PROVIDERS: PCP Internal Medicine; Visit Provider Internal Medicine
DX: A04.8 Other specified bacterial intestinal infections (principal)
CPT/HCPCS: 83013; 99211

== ENCOUNTER 2024-05-30 08:49 | Outpatient (AMB) | payer MEDICARE, SELFPAY ==
--- NOTE | 2024-05-30 09:05 | AM.OFFVISNUR ---
Intake Visit Reasons: H.pylori Breath Test Intake Note: Patient presents for collection of H Pylori breath test. Patient has been fasting for 1 hour (nothing to eat, drink, no chewing gum or smoking) has not taken any antacid medication for at least 2 weeks and has no allergies to artificial sweeteners.?? Allergies Fish Containing Products Allergy (Mild, Verified 04/17/24 12:37) Rash Assessment & Plan Assessment & Plan (1) Gastritis: Code(s): K29.70 - Gastritis, unspecified, without bleeding Category: Medical (2) H. pylori infection: Code(s): A04.8 - Other specified bacterial intestinal infections Category: Medical Plan Patient presents for collection of H Pylori breath test. Patient has been fasting for 1 hour (nothing to eat, drink, no chewing gum or smoking) has not taken any antacid medication for at least 2 weeks and has no allergies to artificial sweeteners.???This test checks for an overgrowth of bacteria in your stomach. We all have bacteria but some may have more than others. It is treatable. if the test comes back negative there is nothing else to do. If the test result is positive we will treat you with 2 antibiotics and a medication to decrease the acid in your stomach (PPI) for 2 weeks. Two weeks after you have completed the treatment we will retest you to make sure the overgrowth has resolved. Orders: Orders H Pylori Breath Test Today Patient Instructions: Process for specimen collection and reason for testing was explained to the patient. Specimen collection. Patient instructed to take a deep breath and then exhale into the blue bag, filling it up as much as possible. Patient instructed to drink a mixture of water and the artificial sweetener with a straw. A 15 minute wait period was observed. Patient instructed to take a deep breath and then exhale into the pink bag, filling it up as much as possible.??
== END 2024-05-30 09:18 | disposition home or self-care (01) ==
PROVIDERS: PCP Internal Medicine; Visit Provider Internal Medicine
DX: K29.70 Gastritis, unspecified, without bleeding (principal); A04.8 Other specified bacterial intestinal infections

== ENCOUNTER 2024-08-12 12:51 | Outpatient (AMB) | payer MEDICARE, SELFPAY ==
--- NOTE | 2024-08-12 12:55 | MHC.OFFVIS ---
Intake Visit Reasons: Inj - Bilateral Knee OA Intake Note: Eldon is a 68 year old male who presents today for a follow up of his bilateral knee OA w/ Chondrocalcinosis and a Varus alignment. Last injections administered on 10/30/2023 Allergies Fish Containing Products Allergy (Mild, Verified 08/12/24 13:01) Rash HPI HPI Inj - Bilateral Knee OA: Details: Eldon is a 68 year old male who presents today for a follow up of his bilateral knee OA w/ Chondrocalcinosis and a Varus alignment. Last injections administered on 10/30/2023. He states they are helping. He would like to repeat injections today. 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 Physical Exam Extrem Other: Varus alignment bilaterally with mild tenderness to palpation medial compartment bilateral knees Office Procedures Joint Inj/Aspir; Non-Pain Clin Joint Injection/Drain Details: Injected 1 mL of Decadron and 3 mL 1% lidocaine and 3 mL of 0.25% Marcaine. Site was prepped using aseptic technique. Patient tolerated the procedure well. Shoulders, Hips, Knees, Knee Large Joint Injection : Bilateral Knee Coding Procedure code (CPT) selection complete Assessment & Plan Assessment & Plan (1) Osteoarthritis of knees, bilateral: Code(s): M17.0 - Bilateral primary osteoarthritis of knee Category: Medical Plan: I injected bilateral knees today. Continue activity as tolerated. Follow up 3-4 months for repeat injections should he so desire. Coding Level of Care Code Est Pt Level 3 (53834) Diagnoses Osteoarthritis of knees, bilateral M17.0 CPT Codes Shoulders, Hips, Knees, - Knee Large Joint Injection : Bilateral Knee ([id number])
--- OUTSIDE RECORDS SUMMARY | 2024-08-12 14:59 | XMS_ITS | Encounter Summary ---
Author Organization [employer] [facility] Address [address] [facility] [address] [place] [address] Care Team Providers Care Heddle Machine Operator Name Role Phone Belinda Figueroa MD Primary Care Provide r Reason for Visit * Reason Comments Med Refill Encounter Details Date Type Department Care Team ([facility] st Contact Info) Description 07/28/2024 Refill [facility] MEDICINE [address] [place], [place] [phone] Belinda Figueroa MD [address] [place], [place] [phone] Social History Tobacco Use Types Packs/Day Years Used Date Smoking Tobacco: Never Passive Smoke Exposure: Never Smokeless Tobacco: Never Depression Answer Date Recorded Patient Health Questionnaire-9 Score 0 07/05/2023 Patient Health Questionnaire-9 Score 0 07/05/2023 Last PHQ-9: Questionnaire Data Not on file 0 07/05/2023 Housing Stability Answer Date Recorded What is your housing situation today? I have glenny rivera 06/23/[address] you li ve. Do you have problems with any of the following? None of the above 06/23/2023 Food Insecurity Answer Date Recorded Within the past 12 months, y ou worried that your food would run out before you got money to buy more: Never True 06/23/2023 Within the past 12 months,th e food you bought just didn't last and you didn't have enough money to get more: Never True Transportation Answer Date Recorded In the past 12 months, has l ack of transportation kept you from medical appts, meetings, work or from getting things needed for daily living? No 06/23/2023 Utilities Answer Date Recorded In the past 12 months, has t he electric, gas, oil or water company threatened to shut off services in your home? No 06/23/2023 Depression Answer Date Recorded Patient Health Questionnaire-2 Score 0 07/05/2023 Sex and Gender Information Value Date Recorded Sex Assigned at Male 03/28/2022 10:34 AM EDT Legal Sex Male 10:34 AM EDT Gender Identity Male 03/28/2022 10:34 AM EDT Sexual Orientation Choose not to disclose 2021 10:55 AM EST Sexual Orientation Straight 05/09/2022 10 :55 AM EST documented as of this encounter Plan of Treatment Not on file documented as of this encounter Visit Diagnoses Not on filedocumented in this encounter Additional Health Concerns Assessment Noted Time PHQ-9 Depression Total Score: 0 07/05/19 24 10:59 AM EST documented as of this encounter Care Teams Heddle Machine Operator Relationship Specialty Start Date End Date Belinda Figueroa MD [address] [place] [phone] PCP - General Family Medicine 05/03/18 documented as of this encounter
--- OUTSIDE RECORDS SUMMARY | 2024-08-12 14:59 | XMS_ITS | Clinical Summary ---
Author Organization [employer] Address [address] [facility] 7[address] [place] [address] Care Team Providers Care Beef Pusher Name Role Phone Belinda Figueroa MD Primary Care Provide r Allergies Active Allergy Reactions Criticality Noted Date Comments Fish-Derived Products 07/22/2021 Lactose 07/22/2021 Medications cyclobenzaprine (Flexeril) 10 MG tabletIndications :Chronic right shoulder pain TAKE 1 TABLET BY MOUTH TWICE DAILY IN THE MORNING AND AT BEDTIME 60 tablet 05/01/20 23 Active famotidine (Pepcid) 20 MG tablet TAKE 1 TABLET BY MOUTH TWICE DAILY 180 tablet 1 03/04/20 24 Active atorvastatin (Lipitor) 20 MG tabletIndications :Other hyperlipidemia TAKE 1 TABLET BY MOUTH EVERY DAY IN THE MORNING 90 tablet 1 03/04/20 24 Active omeprazole (PriLOSEC) [address] capsuleIndication s:Epigastric pain,Early satiety TAKE 1 CAPSULE BY MOUTH TWICE DAILY BEFORE MEALS, DO NOT BREAK, CRUSH, DISSOLVE OR CHEW 60 capsule 1 05/30/19 25 Active sildenafil (Viagra) 50 MG tabletIndications :Erectile dysfunction, unspecified erectile dysfunction type TAKE 1 TABLET 1 HOUR BEFORE SEXUAL RELATIONS ONCE DAILY NEEDED. 25 tablet 07/10/19 25 Active acetaminophen (Tylenol 8 Hour) 650 MG ER tablet Take 2 tablets (1,300 mg) by mouth every 8 (eight) hours if needed for mild pain. Do not crush, chew, or split.TAKE 2 TABLETS BY MOUTH EVERY 8 HOURS SWALLOW WHOLE DO NOT BREAK, CRUSH, DISSOLVE OR CHEW 90 tablet 07/10/19 25 Active D3-1000 25 MCG (1000 UT) capsule TAKE 1 CAPSULE BY MOUTH EVERY DAY NEEDED 90 capsule 1 07/30/19 25 Active D3-1000 25 MCG (1000 UT) capsule TAKE 1 CAPSULE BY MOUTH EVERY DAY NEEDED 90 capsule 1 01/22/20 24 025 Discontinued Active Problems Problem Noted Date Diagnosed Date Seborrheic dermatitis 07/05/2023 Epigastric pain 07/05/2023 Assessment & Plan (07/05/2023 1:39 PM EST): I advise patient to avoid NSAIDs, spicy and acid food, I advise to eat at the same time every day, I advise to elevate the head of the bed and take medications as prescribe Blurry vision, bilateral 07/05/2023 OA (osteoarthritis) of knee 07/05/2023 Erectile dysfunction 07/05/2023 Other constipation 07/05/2023 Assessment & Plan (07/05/2023 1:40 PM EST): Increase water and fiber on diet Colace BID Chronic right shoulder pain 05/30/202306/2023 Early satiety 05/30/2023 05/30/2023 Inflammatory dermatosis 05/30/2023 05/30/19 24 Primary osteoarthritis of right shoulder 024 05/30/2023 Snoring 05/30/2023 05/30/2023 Encounters Date Type Department Care Team Description 07/28/2024 Refill [facility] MEDICINE [address] [place] [address] Belinda Figueroa MD 07/10/2024 Refill [facility] [address] [place] [phone] Belinda Figueroa MD Erectile dysfunction, unspecified erectile dysfunction type 07/02/2024 Telephone [facility] [address] [place], [place] [phone] Lidia Cespedes [place] August05/29/2024 Refill [facility] MEDIC[facility] [address] [place] [address] Belinda Figueroa MD Epigastric pain; Early satiety 05/24/2024 Refill [facility] [address] [place] [address] Belinda Figueroa MD Erectile dysfunction, unspecified erectile dysfunction type from Last 3 Months Immunizations Name Administration Dates Next Due Influenza injectable quadriv alent preservative free 07/05/2023 Moderna Covid-19 Vaccine 12+ 11/18/2021, 07/15/2021,09/18/2020,2020 Pfizer Covid-19 Vaccine 12+ 07/05/2023 Pneumococcal Conjugate PCV 20 07/05/2023 Tdap 10/06/2020,05/03/2018 Social History Tobacco Use Types Packs/Day Years Used Date Smoking Tobacco: Never Passive Smoke Exposure: Never Smokeless Tobacco: Never Tobacco Cessation:Counseling Given: Not Answered Depression Answer Date Recorded Patient Health Questionnaire-9 [...] Orientation Straight 05/09/2022 10 :55 AM EST Last Filed Vital Signs Vital Sign Reading Time Taken Comments Blood Pressure 148/75 07/05/2023 10:59 AM EST Pulse 57 07/05/2023 10:59 AM EST Temperature 36.4 ??C (97.6 ??F) 07/05/2023 10:[address] Respiratory Rate 16 07/05/2023 10:59 AM EST Oxygen Saturation 96% 07/05/2023 10:59 AM EST Inhaled Oxygen Concentration - - Weight 65 kg (143 lb 3.2 oz) 07/05/2023 10:59 AM EST Height 154.9 cm (5' 1 ) 07/05/2023 10:59 AM EST Body Mass Index 27.06 07/05/2023 10:59 AM EST Plan of Treatment Health Maintenance Due Date Last Done Comments CT Colonography 1956 FIT DNA/Cologuard 1956 FIT 1956 FOBT 1956 Sigmoidoscopy 1956 Alcohol/Substance Use Screening 1968 Zoster Vaccines (1 of 2) 2006 Colonoscopy 08/24/2023 08/23/2018 Colorectal Cancer Screening 08/24/2023 COVID-19 Vaccine ( season) 2024 07/05/2023, 11/18/2021, 07/15/2021, Additional history exists Influenza Vaccine (#1) 2024 07/05/2023 SDOH Screening 06/23/2024 06/23/2023 Depression Screening 07/05/2024 07/05/2023, 07/05/19 24 Tobacco Screening 07/05/2024 07/05/2023 Lipid Panel 08/12/2026 08/12/2021 DTaP/Tdap/Td Vaccines (3 - Td or Tdap) 10/06/2030 10/06/2020, 05/03/2018 RSV Patients and Patients Aged 60 years or older (1 - 1-dose 75+ series) 08/27/2031 Pneumococcal Vaccine: 50+ Years Completed 07/05/2023 Hepatitis C Screening Completed 10/30/2023 HIB Vaccines Aged Out No longer eligi ble based on patient's age to complete this topic HPV Vaccines Aged Out No longer eligi ble based on patient's age to complete this topic Hepatitis A Vaccines Aged Out No long er eligible based on patient's age to complete this topic Hepatitis B Vaccines Aged Out No long er eligible based on patient's age to complete this topic IPV Vaccines Aged Out No longer eligi ble based on patient's age to complete this topic Meningococcal Vaccine Aged Out No guzman shahrzad eligible based on patient's age to complete this topic RSV under 20 months Aged Out No longe r eligible based on patient's age to complete this topic Rotavirus Vaccines Aged Out No longer eligible based on patient's age to complete this topic Procedures Procedure Name Priority Date/Time Associated Diagnosis Comments HELICOBACTER PYLORI, UREA BREATH TEST Routine 05/30/2024 9:20 AM EST HEPATITIS C ANTIBODY Routine 10/30/2023 3:31 PM EDT LIPID PANEL, STANDARD Routine 08/12/2021 10:32 AM EDT HM COLONOSCOPY Routine 08/23/2018 from Last 3 Months or Most Recently Relevant to Health Maintenance Results * Helicobacter pylori, Urea Breath Test (05/30/2024 9:20 AM EST) H. pylori Breath Test Negative Negative [facility] Comment:Antimicrobials, prot on pump inhibitors and bismuthpreparations are known to suppress H. pylori. Ingestingthese medications within two weeks prior to performing thebreath test may produce negative test results. A positiveresult is still clinically valid. 05/30/2024 9:20 AM EST 05/30/2024 1:23 PM EST us Generic External Data Provider LAB BLOOD ORDERAB LES Final Result [facility] [address] [place] [phone] * Hepatitis C Ab (10/30/2023 3:31 PM EDT) Hepatitis C Antibody Nonreactive Nonreactive [facility] Comment:Antibodies to HCV no t detected; does not exclude early acuteHCV infection. 10/30/2023 3:31 PM EDT 10/30/2023 3:31 PM EDT us Generic External Data Provider LAB BLOOD ORDERAB LES Final Result Performing Organization Address City/[facility]/ZIP Co de Phone Number [facility] [address] [place] [phone] * (ABNORMAL) LIPID PANEL, STANDARD (08/12/2021 10:32 AM EDT) Chol/HDLC Ratio 5.4(H) <5.0 (calc) [facility] Cholesterol, Total 204(H) <200 mg/dL [facility] HDL Cholesterol 38(L) > OR = 40 mg/dL [facility] LDL Cholesterol 136(H) mg/dL (calc) [facility] Comment: Reference range: <100 ?? Desirable range <100 mg/dL for primary prevention; ?? <70 mg/dL for patients with CHD or diabetic patients ?? with > or = 2 CHD risk factors. ?? LDL-C is now calculated using the Kg-Daniels ?? calculation, which is a validated novel method providing ?? better accuracy than the Friedewald equation in the ?? estimation of LDL-C. ?? Kg FOSTER et al. DANA. 2013;310(19): 9335-4836 ?? (http://education.[employer] Demand/faq/PZX712) Non-HDL Cholesterol 166(H) <130 mg/dL (calc) [facility] Comment: For patients with diabetes plus 1 major ASCVD risk ?? factor, treating to a non-HDL-C goal of <100 mg/dL ?? (LDL-C of <70 mg/dL) is considered a therapeutic ?? option. Triglycerides 163(H) <150 mg/dL [facility] 08/12/2021 10:3 2 AM EDT us Belinda Sarabia MD LAB BLOOD ORDERABLES Final Result [facility] [address] [place] [address], * Hm Colonoscopy (08/23/2018) us Historical Provider MD HEALTH MAINTENANCE Final Result from Last 3 Months or Most Recently Relevant to Health Maintenance Insurance [facility] HSN FULL [facility] MEDIC[facility] ADVANTAGE Care Teams Beef Pusher Relationship Specialty Start Date End Date Belinda Figueroa MD [address] [place] [phone] PCP - General Family Medicine 05/03/18
--- OUTSIDE RECORDS SUMMARY | 2024-08-12 14:59 | XMS_ITS | Encounter Summary ---
Author Organization [employer] [facility] Address [address] [facility] [address]t [place] [address] Care Team Providers Care Boiler Cleaner Name Role Phone Belinda Figueroa MD Primary Care Provide r Encounter Details Date Type Department Care Team ([facility] st Contact Info) Description 02/02/2023 Orders Only [facility] MEDICINE [address] [place], [place] [phone] Provider, MD Rachel Social History Tobacco Use Types Packs/Day Years Used Date Smoking Tobacco: Never Assessed Sex and Gender Information Value Date Recorded Sex Assigned at Male 03/28/2022 10:34 AM EDT Legal Sex Male 10:34 AM EDT Gender Identity Male 03/28/2022 10:34 AM EDT Sexual Orientation Choose not to disclose 2021 10:55 AM EST Sexual Orientation Straight 05/09/2022 10 :55 AM EST documented as of this encounter Plan of Treatment Not on file documented as of this encounter Procedures Procedure Name Priority Date/Time Associated Diagnosis Comments HM COLONOSCOPY Routine 08/23/2018 documented in this encounter Results * Hm Colonoscopy (08/23/2018) us Historical Provider HEALTH MAINTENANCE Final Result documented in this encounter Visit Diagnoses Not on filedocumented in this encounter Care Teams Boiler Cleaner Relationship Specialty Start Date End Date Belinda Figueroa MD [address] [place] [address] PCP - General Family Medicine 05/03/18 documented as of this encounter
--- OUTSIDE RECORDS SUMMARY | 2024-08-12 14:59 | XMS_ITS | Encounter Summary ---
Author Organization [employer] [facility] Address [address] [place] [address] Care Team Providers Care Skating Carhop Name Role Phone Belinda Figueroa MD Primary Care Provide r Encounter Details Date Type Department Care Team ([facility] st Contact Info) Description 12/13/2022 Orders Only [facility] MEDICINE [address] [place], [place] [phone] Roxy Galaviz LPN Social History Tobacco Use Types Packs/Day Years [...] on filedocumented in this encounter Care Teams Skating Carhop Relationship Specialty Start Date End Date Belinda Figueroa MD [address] [place] [address] PCP - General Family Medicine 05/03/18 documented as of this encounter
--- OUTSIDE RECORDS SUMMARY | 2024-08-12 14:59 | XMS_ITS | Encounter Summary ---
Author Organization [employer] [facility] Address [address] [facility] [address] [place] [address] Care Team Providers Care Perforator Typist Name Role Phone Belinda Figueroa MD Primary Care Provide r Reason for Visit * Reason Comments Med Refill Encounter Details Date Type Department Care Team ([facility] st Contact Info) Description 11/17/2023 Refill [facility] MEDICINE [address] [place], [place] [phone] Belinda Figueroa MD [address] [place], [place] [phone] Erectile dysfunction, unspecified erectile dysfunction type Social History Tobacco Use Types Packs/Day Years [...] documented as of this encounter Visit Diagnoses Diagnosis Erectile dysfunction, unspecified erectile dysfunction type documented in this encounter Additional Health Concerns Assessment Noted Time PHQ-9 Depression Total Score: 0 07/05/19 24 10:59 AM EST documented as of this encounter Care Teams Perforator Typist Relationship Specialty Start Date End Date Belinda Figueroa MD [address] [place] [address] PCP - General Family Medicine 05/03/18 documented as of this encounter
--- OUTSIDE RECORDS SUMMARY | 2024-08-12 14:59 | XMS_ITS | Encounter Summary ---
Author Organization [employer] Address [address] [place] [address] Care Team Providers Care Sales Attendant Building Materials Name Role Phone Belinda Figueroa MD Primary Care Provide r Reason for Visit * Reason Comments Med Refill Encounter Details Date Type Department Care Team ([facility] st Contact Info) Description 05/02/2022 Refill [facility] [address] [place] [address] Ya Carballo FNP [address] [place] [address] Social History Tobacco Use Types Packs/Day Years Used Date Smoking Tobacco: Never Assessed Sex and Gender Information Value Date Recorded Sex Assigned at Male 03/28/2022 10:34 AM EDT Legal Sex Male 10:34 AM EDT Gender Identity Male 03/28/2022 10:34 AM EDT Sexual Orientation Choose not to disclose 2021 10:55 AM EST Sexual Orientation Straight 05/09/2022 10 :55 AM EST COVID-19 Exposure Response Date Recorded In the last 10 days, have yo u been in contact with someone who was confirmed or suspected to have Coronavirus/COVID-19? No / Unsure 05/02/2022 11:46 AM EST documented as of this encounter Miscellaneous Notes * Telephone Encounter - Vivian Quezada DO - 05/02/2022 4:25 PM EST Rx request denied. Pt needs to be seen and re-evaluated. * Telephone Encounter - Roxy Galaviz LPN - 05/02/2022 3:11 PM EST Med not queued as for short term use documented in this encounter Plan of Treatment Not on file documented as of this encounter Visit Diagnoses Not on filedocumented in this encounter Care Teams Sales Attendant Building Materials Relationship Specialty Start Date End Date Belinda Figueroa MD [address] [place] [address] PCP - General Family Medicine 05/03/18 documented as of this encounter
--- OUTSIDE RECORDS SUMMARY | 2024-08-12 14:59 | XMS_ITS | Encounter Summary ---
Author Organization [employer] Address [address] [facility] [address] [place] [address] Care Team Providers Care Social Media Designer Name Role Phone Belinda Figueroa MD Primary Care Provide r Reason for Visit * Reason Comments Med Refill Encounter Details Date Type Department Care Team ([facility] st Contact Info) Description 05/24/2024 Refill [facility] MED & PEDS [address] [place], [place] [phone] Belinda Figueroa MD [address] [place] [address] Erectile dysfunction, unspecified erectile dysfunction type Social [...] documented as of this encounter Care Teams Social Media Designer Relationship Specialty Start Date End Date Belinda Figueroa MD [address] [place] [address] PCP - General Family Medicine 05/03/18 documented as of this encounter
--- OUTSIDE RECORDS SUMMARY | 2024-08-12 14:59 | XMS_ITS | Encounter Summary ---
Author Organization [employer] [facility] Address [address] [facility] 7t [place] [address] Care Team Providers Care Food Service Manager Name Role Phone Belinda Figueroa MD Primary Care Provide r Reason for Visit * Reason Comments Med Refill Encounter Details Date Type Department Care Team (Late st Contact Info) Description 10/06/2022 Refill [facility] MED[facility]INE [address] [place], [place] [phone] Belinda Figueroa MD [address] [place] [address] Social History Tobacco Use Types Packs/Day Years [...] on filedocumented in this encounter Care Teams Food Service Manager Relationship Specialty Start Date End Date Belinda Figueroa MD [address] [place] [address] PCP - General Family Medicine 05/03/18 documented as of this encounter
== END 2024-08-12 13:10 | disposition home or self-care (01) ==
LOC: HO.HOS 12:52
PROVIDERS: PCP Internal Medicine; Visit Provider Orthopaedic Surgery
DX: M17.0 Bilateral primary osteoarthritis of knee (principal)
CPT/HCPCS: 20610

== ENCOUNTER → 2024-08-12 12:51 | Outpatient (BNVA) | payer MEDICARE, SELFPAY | PROVIDERS: PCP Internal Medicine; Visit Provider Orthopaedic Surgery | DX: M17.0 Bilateral primary osteoarthritis of knee (principal); M11.262 Other chondrocalcinosis, left knee; M11.261 Other chondrocalcinosis, right knee | CPT/HCPCS: 20610; J0665; J1100; J2003 ==

== ENCOUNTER 2025-01-20 14:25 | Outpatient (AMB) | payer MEDICARE, SELFPAY ==
--- NOTE | 2025-01-20 14:35 | A.OFFVIS_ITS ---
Intake Visit Reasons: Inj - Bilateral Knee OA last inj 08/12/24 Intake Note: Eldon is a 69 year old male who presents today for repeat bilateral knee injections, last administered on 08/12/24. Patient reports relief with the injections and would like to repeat bilateral knee injections,no further questions at this time. Allergies Fish Containing Products Allergy (Mild, Verified 01/20/25 14:36) Rash HPI HPI Inj - Bilateral Knee OA last inj 08/12/24: Details: Eldon is a 69 year old male who presents today for repeat bilateral knee injections, last administered on 08/12/24. Patient reports relief with the injections and would like to repeat bilateral knee injections,no further questions at this time. 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 Physical Exam Extrem Other: Varus alignment bilaterally with mild tenderness to palpation medial compartment bilateral knees Office Procedures Joint Inj/Aspir; Non-Pain Clin Joint Injection/Drain Details: Injected 1 mL of Decadron and 3 mL 1% lidocaine and 3 mL of 0.25% Marcaine. Site was prepped using aseptic technique. Patient tolerated the procedure well. Shoulders, Hips, Knees, Knee Large Joint Injection : Bilateral Knee Coding Procedure code (CPT) selection complete Assessment & Plan Assessment & Plan (1) Osteoarthritis of knees, bilateral: Code(s): M17.0 - Bilateral primary osteoarthritis of knee Category: Medical Plan: 61-year-old gentleman with bilateral knee pain. He has benefitted from activity modification and injections. I injected bilateral knees today. May follow up in 3-4 months as needed. Coding Level of Care Code Est Pt Level 3 (15877) Diagnoses Osteoarthritis of knees, bilateral M17.0 CPT Codes Shoulders, Hips, Knees, - Knee Large Joint Injection : Bilateral Knee ([id number])
--- OUTSIDE RECORDS SUMMARY | 2025-01-20 16:04 | XMS_ITS | Encounter Summary ---
Author Organization [employer] Address [address] [facility] 7t [place] [address] Care Team Providers Care Behavioral Health Tech Name Role Phone Belinda Figueroa MD Primary Care Provide r Reason for Visit * Reason Comments Med Refill Encounter Details Date Type Department Care Team ([facility] st Contact Info) Description 01/17/2025 Refill [facility] [address] [place], [place] [phone] Belinda Figueroa MD [address] [place], [place] [phone] Primary osteoarthritis of right shoulder Social History Tobacco Use Types Packs/Day Years Used Date Smoking Tobacco: Former Cigarettes Passive Smoke Exposure: Past Smokeless Tobacco: Never Alcohol Use Standard Drinks/Week Comments Never 0 (1 standard drink = 0.6 oz pur e alcohol) Depression Answer Date Recorded Patient Health Questionnaire-9 Score 2 12/12/2024 Patient Health Questionnaire-9 Score 2 12/12/2024 Last PHQ-9: Questionnaire Data Not on file 0 12/12/2024 Housing Stability Answer Date Recorded What is your housing situation today? I have glenny rivera 12/12/[address] you li ve. Do you have problems with any of the following? None of the above 12/12/2024 Food Insecurity Answer Date Recorded Within the past 12 months, y ou worried that your food would run out before you got money to buy more: Never True 12/12/2024 Within the past 12 months,th e food you bought just didn't last and you didn't have enough money to get more: Never True Transportation Answer Date Recorded In the past 12 months, has l ack of transportation kept you from medical appts, meetings, work or from getting things needed for daily living? No 12/12/2024 Utilities Answer Date Recorded In the past 12 months, has t he electric, gas, oil or water company threatened to shut off services in your home? No 12/12/2024 Depression Answer Date Recorded Patient Health Questionnaire-2 Score 0 12/12/2024 Internet Access Answer Date Recorded Internet Access Q1 Yes 12/12/2024 Internet Access Q2 Not on file 12/12/2024 Sex and Gender Information Value Date Recorded Sex Assigned at Male 03/28/2022 10:34 AM EDT Legal Sex Male 10:34 AM EDT Gender Identity Male 03/28/2022 10:34 AM EDT Sexual Orientation Choose not to disclose 2021 10:55 AM EST Sexual Orientation Straight 05/09/2022 10 :55 AM EST documented as of this encounter Plan of Treatment Upcoming Encounters Date Type Department Care Team (Late st Contact Info) Description 02/13/2025 11:30 AM EDT Immunization [facility] [address] [place] [phone] 03/20/2025 10:45 AM EDT Office Visit [facility] [address] [place] [address] Belinda Figueroa MD [address] [place] [phone] documented as of this encounter Visit Diagnoses Diagnosis Primary osteoarthritis of right shoulder documented in this encounter Additional Health Concerns Assessment Noted Time PHQ-9 Depression Total Score: 2 12/13/19 25 10:20 AM EDT documented as of this encounter Care Teams Behavioral Health Tech Relationship Specialty Start Date End Date Belinda Figueroa MD [address] [place] [phone] PCP - General Family Medicine 05/03/18 documented as of this encounter
--- OUTSIDE RECORDS SUMMARY | 2025-01-20 16:04 | XMS_ITS | Clinical Summary ---
Author Organization [facility] Address [address] [address] Phone Care Team Providers Care Hypnotherapist Name Role Phone Belinda Sorensen MD Primary Care Provider Allergies Active Allergy Reactions Criticality Noted Date Comments Fish Derived 07/22/2021 Lactose 07/22/2021 Medications ibuprofen (ADVIL,MOTRIN) 600 MG tablet Take 1 tablet (600 mg total) by mouth every 6 (six) hours as needed for pain (specific location in comments). 20 tablet 8 Active ondansetron (ZOFRAN-ODT) 4 MG disintegrating tablet Take 1 tablet (4 mg total) by mouth every 8 (eight) hours as needed for nausea. 5 tablet 3 Active ondansetron (ZOFRAN-ODT) 4 MG disintegrating tablet Take 1 tablet (4 mg total) by mouth every 8 (eight) hours as needed for nausea. 10 tablet 3 Active Social History Tobacco Use Types Packs/Day Years Used Date Smoking Tobacco: Never Smokeless Tobacco: Never Tobacco Cessation:Counseling Given: Not Answered Alcohol Use Standard Drinks/Week Comments Not Currently 0 (1 standard drink = 0.6 oz pur e alcohol) Education Answer Date Recorded Are you interested in more education? Not on alee e 09/23/2022 Are you concerned about learning? Not on file 09/23/2022 No 09/23/2022 No 09/23/2022 Digital Access Answer Date Recorded No 10/24/2022 No 10/24/2022 Reliable internet access at home? Not on file 10/24/2022 Device with a working camera? Not on file Intimate Partner Violence Answer Date R ecorded Are you denied basic needs s uch as food, clothing, or medical care? No 12/13/2022 In the past 12 months have y ou been in a relationship with a person who hurts, threatens, or tries to control you? No 12/13/2022 Are you denied basic needs s uch as food, clothing, or medical care? No 12/13/2022 In the past 12 months have y ou been in a relationship with a person who hurts, threatens, or tries to control you? No 12/13/2022 Sex and Gender Information Value Date Recorded Sex Assigned at Male 07/20/2017 2:16 PM EST Legal Sex Male 9:53 PM EDT Gender Identity Male 07/20/2017 2:16 PM EST Sexual Orientation Straight 07/20/2017 2: 16 PM EST Last Filed Vital Signs Vital Sign Reading Time Taken Comments Blood Pressure 147/83 12/13/2022 2:25 PM EDT Pulse 53 12/13/2022 2:25 PM EDT Temperature 36.8 C (98.2 F) 12/13/2022 2:25 PM EDT Respiratory Rate 16 12/13/2022 2:25 PM EDT Oxygen Saturation 97% 12/13/2022 2:25 PM EDT Inhaled Oxygen Concentration - - Weight 68 kg (150 lb) 12/13/2022 12:03 PM EDT Height 160 cm (5' 3 ) 07/18/2022 8:42 AM EST Body Mass Index 26.57 07/18/2022 8:42 AM EST Plan of Treatment Not on file Medical Devices Not on file Insurance [employer] HEALTH SAFETY NET FULL Member Subscriber Plan / Payer (Ef fective 2022-Present) Name:Eldon Veronica Relation to Subscriber:Self Name:Eldon Veronica Payer ID:Not on file Group ID:Not on file Type:Medicaid Address: [address] MEDICARE REPLACEMENT [facility] HEALTH SAFETY NET FULL MEDICARE REPLACEMENT [facility] FULL MEDICARE REPLACEMENT [facility] FULL MEDICARE [facility]PLACEMENT [facility] HE[facility]AF[facility] NET FULL Member Subscriber Plan / Payer (Ef fective 2022-) Name:Eldon Veronica Relation to Subscriber:Self Name:Eldon Veronica Payer ID:Not on file Group ID:Not on file Type:Medicaid Address: [address] MEDICARE REPLACEMENT [facility] HEALTH SAFETY NET FULL Member Subscriber Plan / Payer (Ef fective 2022-Present) Name:Eldon Veronica Relation to Subscriber:Self Name:Eldon Veronica Payer ID:Not on file Group ID:Not on file Type:Medicaid Address: [address] MEDICARE REPLACEMENT Care Teams Hypnotherapist Relationship Specialty Start Date End Date Belinda Sorensen MD [address] [place] [phone] PCP - General Internal Medicine 12/15/21 Additional Source Comments The information contained in this document represents components of the legal health record. It is not the complete legal health record.[facility]
--- OUTSIDE RECORDS SUMMARY | 2025-01-20 16:04 | XMS_ITS | Encounter Summary ---
Author Organization [employer] [facility] Address [address] [facility] 7t [place] [address] Care Team Providers Care Clinical Law Professor Name Role Phone Belinda Figueroa MD Primary Care Provide r Encounter Details Date Type Department Care Team (Late Contact Info) Description 02/02/2023 Orders Only [facility] [address] [place] [phone] Provider, MD Rachel Social History Tobacco Use [...] Encounters Date Type Department Care Team (Late Contact Info) Description 02/13/2025 11:30 AM EDT Immunization [address] [phone] 03/20/2025 10:45 AM EDT Office Visit [address] [address] Belinda Figueroa MD [address] [place] [phone] documented as of this encounter Procedures Procedure Name Priority Date/Time Associated Diagnosis Comments HM COLONOSCOPY Routine 08/23/2018 documented in this encounter Results * Hm Colonoscopy (08/23/2018) Historical Provider HEALTH MAINTENANCE Final Result documented in this encounter Visit Diagnoses Not on filedocumented in this encounter Care Teams Clinical Law Professor Relationship Specialty Start Date End Date Belinda Figueroa MD [address] [place] [address] PCP - General Family Medicine 05/03/18 documented as of this encounter
--- OUTSIDE RECORDS SUMMARY | 2025-01-20 16:04 | XMS_ITS | Encounter Summary ---
Author Organization [id number] Address [address] [facility] 7t [place] [address] Care Team Providers Care Supervisor Slitting And Shipping Name Role Phone Belinda Figueroa MD Primary Care Provide r Encounter Details Date Type Department Care Team (Late Contact Info) Description 12/13/2022 Orders Only [facility] MEDICINE [address] [place] [phone] Roxy Galaviz LPN Social History Tobacco Use [...] Info) Description 02/13/2025 11:30 AM EDT Immunization [address] [address] 03/20/2025 10:45 AM EDT Office Visit [address] [address] Belinda Figueroa MD [address] [place] [address] documented as of this encounter Visit Diagnoses Not on filedocumented in this encounter Care Teams Supervisor Slitting And Shipping Relationship Specialty Start Date End Date Belinda Figueroa MD [address] [place] [phone] PCP - General Family Medicine 05/03/18 documented as of this encounter
--- OUTSIDE RECORDS SUMMARY | 2025-01-20 16:04 | XMS_ITS | Encounter Summary ---
Author Organization [employer] Address [address] [facility] 7t [place] [address] Care Team Providers Care Terrazzo Tile Maker Name Role Phone Belinda Figueroa MD Primary Care Provide r Reason for Visit * Reason Comments Med Refill Encounter Details Date Type Department Care Team ([facility] st Contact Info) Description 05/24/2024 Refill [facility] MED & PEDS [address] [place], [place] [phone] Belinda Figueroa MD [address] [place] [address] Erectile dysfunction, unspecified erectile dysfunction type Social [...] Description 02/13/2025 11:30 AM EDT Immunization [address] [address] 03/20/2025 10:45 AM EDT Office Visit [address] [address] Belinda Figueroa MD [address] [place] [phone] documented as of this encounter Visit Diagnoses Diagnosis Erectile dysfunction, unspecified erectile dysfunction type documented in this encounter Additional Health Concerns Assessment Noted Time PHQ-9 Depression Total Score: 0 07/05/19 24 10:59 AM EST documented as of this encounter Care Teams Terrazzo Tile Maker Relationship Specialty Start Date End Date Belinda Figueroa MD [address] [place] [phone] PCP - General Family Medicine 05/03/18 documented as of this encounter
--- OUTSIDE RECORDS SUMMARY | 2025-01-20 16:04 | XMS_ITS | Clinical Summary ---
Author Organization [employer] Address [address] [facility] 7t [place] [address] Care Team Providers Care Quality Control Engineering Technician Name Role Phone Belinda Figueroa MD Primary [...] BY MOUTH TWICE DAILY 180 tablet 1 10/03/19 25 Active atorvastatin (Lipitor) 40 MG tabletIndications :Dyslipidemia Take 1 tablet (40 mg) by mouth Once per day. 90 tablet 1 12/13/19 25 026 Active omeprazole (PriLOSEC) [address] capsuleIndication s:Epigastric pain Take 1 capsule (40 mg) by mouth before breakfast and before evening meal. Do not crush or chew. 90 capsule 1 12/13/19 25 Active sildenafil (Viagra) 50 MG tabletIndications :Erectile dysfunction, unspecified erectile dysfunction type TAKE 1 TABLET 1 HOUR BEFORE SEXUAL RELATIONS ONCE DAILY NEEDED. 25 tablet 2 12/13/19 25 Active cholecalciferol (D3-1000) 25 MCG (1000 UT) capsuleIndication s:Dyslipidemia Take 1 capsule (25 mcg) by mouth Once per day. 90 capsule 1 12/13/19 25 Active acetaminophen (Tylenol 8 Hour) 650 MG ER tabletIndications :Primary osteoarthritis of right shoulder TAKE 2 TABLETS BY MOUTH EVERY 8 HOURS NEEDED FOR MILD PAIN, DO NOT BREAK, CRUSH, DISSOLVE OR CHEW 90 tablet 01/18/20 25 Active acetaminophen (Tylenol 8 Hour) 650 MG ER tabletIndications :Primary osteoarthritis of right shoulder Take 2 tablets (1,300 mg) by mouth every 8 (eight) hours if needed for mild pain. Do not crush, chew, or split.TAKE 2 TABLETS BY MOUTH EVERY 8 HOURS SWALLOW WHOLE DO NOT BREAK, CRUSH, DISSOLVE OR CHEW 90 tablet 12/13/19 25 025 Discontinued Active Problems Problem Noted Date Diagnosed Date Precordial chest pain 12/12/2024 Assessment & Plan (12/12/2024 11:06 AM EDT): I put a stat referral to cardiology for possible stress test and further evaluation Extensive ED precautions were reviewed today, he is aware if he has another episode of chest pain he will go immediately to the emergency room or will call ambulance Dyslipidemia 12/12/2024 Assessment & Plan (12/12/2024 11:05 AM EDT): Extensive counseling about healthy diet and exercise done today I decided to go up on atorvastatin to 40 mg daily Seborrheic dermatitis 07/05/2023 Epigastric pain 07/05/2023 Assessment [...] Encounters Date Type Department Care Team Description 01/17/2025 Refill [facility] MEDICINE [address] [place] [address] Belinda Figueroa MD Primary osteoarthritis of right shoulder 01/09/2025 Telephone [facility] MED [facility] PEDS [address] [place] [address] Belinda Figueroa MD OCT RECALL 12/12/2024 10:15 AM EDT Office Visit [facility] MEDICINE [address] [place] [address] Belinda Figueroa MD Precordial chest pain; Dyslipidemia; Epigastric pain; Erectile dysfunction, unspecified erectile dysfunction type; Primary osteoarthritis of right shoulder 12/12/2024 Travel 11/23/2024 Refill [facility] MEDICINE [address] [place] [address] Belinda Figueroa MD Epigastric pain; Early satiety from Last 3 Months Immunizations Immunization Administration Dates Next Due Influenza injectable quadriv alent preservative free 07/05/2023 Moderna Covid-19 Vaccine 12+ 11/18/2021, 07/15/2021,09/18/2020,2020 Pfizer Covid-19 Vaccine 12+ 07/05/2023 Pneumococcal Conjugate PCV 20 07/05/2023 Tdap 10/06/2020,05/03/2018 Social History Tobacco Use Types Packs/Day Years Used Date Smoking Tobacco: Former Cigarettes Passive Smoke Exposure: Past Smokeless Tobacco: Never Tobacco Cessation:Counseling Given: Not Answered Alcohol Use Standard Drinks/Week Comments Never 0 [...] Sign Reading Time Taken Comments Blood Pressure 126/80 12/12/2024 10:17 AM EDT Pulse 66 12/12/2024 10:17 AM EDT Temperature 36.8 C (98.2 F) 12/12/2024 10:17 AM EDT Respiratory Rate 14 12/12/2024 10:17 AM EDT Oxygen Saturation 96% 07/05/2023 10:59 AM EST Inhaled Oxygen Concentration - - Weight 65.5 kg (144 lb 6 oz) 12/12/2024 10:17 AM EDT Height 154.9 cm (5' 1 ) 12/12/2024 10:17 AM EDT Body Mass Index 27.28 12/12/2024 10:17 AM EDT Plan of Treatment Upcoming Encounters Date Type Department Care Team (Late st Contact Info) Description 02/13/2025 11:30 AM EDT Immunization [facility] [address] [place] [phone] 03/20/2025 10:45 AM EDT Office Visit [facility] [address] [place] [phone] Belinda Figueroa MD [address] [place] [phone] Health Maintenance Due Date Last Done Comments CT Colonography 1956 FIT DNA/Cologuard 1956 FIT 1956 FOBT 1955 Sigmoidoscopy 1956 COVID-19 Vaccine ( season) 2024 07/05/2023, 11/18/2021, 07/15/2021, Additional history exists Influenza Vaccine (#1) 2025 07/05/2023 Zoster Vaccines (2 of 2) 02/06/2025 12/12/2024 Alcohol/Substance Use Screening 12/12/2025 12/12/2024 Depression Screening 12/12/2025 12/12/2024, 12/13/19 25 SDOH Screening 12/12/2025 12/12/2024 Tobacco Screening 12/12/2025 12/12/2024 Lipid Panel 08/12/2026 08/12/2021 DTaP/Tdap/Td Vaccines (3 - Td or Tdap) 10/06/2030 10/06/2020, 05/03/2018 RSV Patients and Patients Aged 60 years or older (1 - 1-dose 75+ series) 08/27/2031 Colonoscopy 04/01/2034 04/01/2024, 08/23/2018 Colorectal Cancer Screening 04/01/2034 Pneumococcal Vaccine: 50+ Years Completed 07/05/2023 Hepatitis [...] patient's age to complete this topic Meningococcal B Vaccine Aged Out No l onger eligible based on patient's age to complete [...] Procedure Name Priority Date/Time Associated Diagnosis Comments COLONOSCOPY Routine 04/01/2024 HEPATITIS C ANTIBODY Routine 10/30/2023 3:31 PM EDT LIPID PANEL, STANDARD Routine 08/12/2021 10:32 AM EDT from Last 3 Months or Most Recently Relevant to Health Maintenance Results * Hm Colonoscopy (04/01/2024) Colonoscopy Normal Normal Narrative Angela Huitron - 04/01/2024 Recommended 10 years. See see external hospital admission note on 04/02/2024 us Historical Provider HEALTH MAINTENANCE Final Result * Hepatitis C Ab (10/30/2023 3:31 PM EDT) Hepatitis C Antibody Nonreactive Nonreactive [facility] Comment:Antibodies to HCV no t detected; does not exclude early acuteHCV infection. 10/30/2023 3:31 PM EDT 10/30/2023 3:31 PM EDT Generic External Data Provider LAB BLOOD ORDERAB LES Final Result [facility] [address] [place] [phone] * (ABNORMAL) LIPID PANEL, STANDARD (08/12/2021 10:32 AM EDT) Chol/HDLC Ratio 5.4(H) <5.0 (calc) [facility] Cholesterol, Total 204(H) <200 mg/dL [facility] HDL Cholesterol 38(L) > OR = 40 mg/dL [facility] LDL Cholesterol 136(H) mg/dL (calc) [facility] Comment: Reference range: <100 Desirable range <100 mg/dL for primary prevention; <70 mg/dL for patients with CHD or diabetic patients with > or = 2 CHD risk factors. LDL-C is now calculated using the Deo calculation, which is a validated novel method providing better accuracy than the Friedewald equation in the estimation of LDL-C. Kg FOSTER et al. DANA. 2013;310(19): 0794-8414 (http://education.FoodByNet.GeckoLife/faq/LSX762) Non-HDL Cholesterol 166(H) <130 mg/dL (calc) [facility] Comment: For patients with diabetes plus 1 major ASCVD risk factor, treating to a non-HDL-C goal of <100 mg/dL (LDL-C of <70 mg/dL) is considered a therapeutic option. Triglycerides 163(H) <150 mg/dL [facility] 08/12/2021 10:3 2 AM EDT Belinda Sarabia MD LAB BLOOD ORDERABLES Final Result [facility] [address] from Last 3 Months or Most Recently Relevant to Health Maintenance Insurance [facility] FULL [facility] MEDICARE ADVANTAGE Care Teams Quality Control Engineering Technician Relationship Specialty Start Date End Date Belinda Figueroa MD [address] [place] [phone] PCP - General Family Medicine 05/03/18
--- OUTSIDE RECORDS SUMMARY | 2025-01-20 16:04 | XMS_ITS | Encounter Summary ---
Author Organization [employer] Address [address] [facility] 7t [place] [address] Care Team Providers Care Sales Demonstrator Name Role Phone Belinda Figueroa MD Primary Care Provide r Reason for Visit * Reason Comments Med Refill Encounter Details Date Type Department Care Team ([facility] Contact Info) Description 10/06/2022 Refill [facility] MEDICINE [address] [place] [phone] Belinda Figueroa MD [address] [place] [address] [phone] Social History Tobacco Use Types Packs/Day Years [...] Info) Description 02/13/2025 11:30 AM EDT Immunization [facility] MED[facility]INE [address] [place] [address] [phone] 03/20/2025 10:45 AM EDT Office Visit [facility] MED[facility] [address] [place] [phone] Belinda Figueroa MD [address] [place] [address] [phone] documented as of this encounter Visit Diagnoses Not on filedocumented in this encounter Care Teams Sales Demonstrator Relationship Specialty Start Date End Date Belinda Figueroa MD [address] [place] [address] PCP - General Family Medicine 05/03/18 documented as of this encounter
--- OUTSIDE RECORDS SUMMARY | 2025-01-20 16:04 | XMS_ITS | Encounter Summary ---
Author Organization [employer] Address [address] [facility] 7t [place] [address] Care Team Providers Care Account Support Rep Name Role Phone Belinda Figueroa MD Primary Care Provide r Reason for Visit * Reason Comments Med Refill Encounter Details Date Type Department Care Team ([facility] st Contact Info) Description 11/17/2023 Refill [facility] [address] [place], [place] [phone] Belinda Figueroa MD [address] [place], [place] [phone] Erectile dysfunction, unspecified erectile dysfunction type Social [...] Info) Description 02/13/2025 11:30 AM EDT Immunization [address] [phone] 03/20/2025 10:45 AM EDT Office Visit [address] [address] Belinda Figueroa MD [address] [place] [phone] documented as of this encounter Visit Diagnoses Diagnosis Erectile dysfunction, unspecified erectile dysfunction type documented in this encounter Additional Health Concerns Assessment Noted Time PHQ-9 Depression Total Score: 0 07/05/19 24 10:59 AM EST documented as of this encounter Care Teams Account Support Rep Relationship Specialty Start Date End Date Belinda Figueroa MD [address] [place] [phone] PCP - General Family Medicine 05/03/18 documented as of this encounter
--- OUTSIDE RECORDS SUMMARY | 2025-01-20 16:04 | XMS_ITS | Encounter Summary ---
Author Organization [employer] Address [address] [facility] 7t [place] [address] Care Team Providers Care Entry Level Administrative Assistant Name Role Phone Belinda Figueroa MD Primary Care Provide r Reason for Visit * Reason Comments Med Refill Encounter Details Date Type Department Care Team ([facility] st Contact Info) Description 05/02/2022 Refill [facility] MEDICINE [address] [place] [address] Ya Carballo FNP [address] [place], [place] [phone] Social History Tobacco Use Types Packs/Day Years [...] documented in this encounter Plan of Treatment Upcoming Encounters Date Type Department Care Team (Late st Contact Info) Description 02/13/2025 11:30 AM EDT Immunization [facility] MED[facility] [address] [place] [phone] 03/20/2025 10:45 AM EDT Office Visit [facility] [address] [place] [phone] Belinda Figueroa MD [address] [place] [phone] documented as of this encounter Visit Diagnoses Not on filedocumented in this encounter Care Teams Entry Level Administrative Assistant Relationship Specialty Start Date End Date Belinda Figueroa MD [address] [place] [phone] PCP - General Family Medicine 05/03/18 documented as of this encounter
== END 2025-01-20 14:54 | disposition home or self-care (01) ==
LOC: HO.HOS 14:26
PROVIDERS: PCP Internal Medicine; Visit Provider Orthopaedic Surgery
DX: M17.0 Bilateral primary osteoarthritis of knee (principal)
CPT/HCPCS: 20610; 99213

== ENCOUNTER → 2025-01-20 14:25 | Outpatient (BNVA) | payer MEDICARE, SELFPAY | PROVIDERS: PCP Internal Medicine; Visit Provider Orthopaedic Surgery | DX: M17.0 Bilateral primary osteoarthritis of knee (principal) | CPT/HCPCS: 20610; 99212; J0665; J1100; J2003 ==

== ENCOUNTER 2025-04-16 10:32 | Outpatient (AMB) | payer MEDICARE, SELFPAY ==
--- NOTE | 2025-04-16 10:34 | A.OFFVIS_ITS ---
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 Special Education Para Professional Required: Yes Special Education Para Professional Language: [employer] Services: Special Education Para Professional Offered & Declined Special Education Para Professional Name: spouse/ Accompanied by: Spouse Allergies Fish Containing Products Allergy (Mild, Verified 01/20/25 14:36) Rash Medication List - Last Reconciled 04/16/25 by Ricky Oconnor MD acetaminophen ER (Arthritis Pain Relief (acetaminophen) ER) 1,300 mg PO Q8H PRN atorvastatin 20 mg PO DAILY celecoxib 200 mg PO BID cholecalciferol (vitamin D3) (Vitamin D3) 25 mcg PO DAILY PRN cyclobenzaprine 10 mg PO BID PRN ergocalciferol (vitamin D2) 1,250 mcg PO QWEEK famotidine 20 mg PO BID omeprazole 40 mg PO BID sildenafil (Viagra) 50 mg PO DAILY PRN HPI Comments Details: 69-year-old gentleman accompanied by his here for assessment of chest pain. He has been experiencing left-sided and central chest discomfort when he is excited and under stress. He also gets this with activities. His description is more of a pulsation in his chest which happens when he is exercising. These symptoms has been happening for sometime. No discomfort at rest. He has history of hyperlipidemia but no diabetes or hypertension. Blood pressure well controlled currently. He is a nonsmoker. He is denying any family history for coronary artery disease. 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 Review of Systems Const Denies chills, Denies fatigue, Denies fever(s), Denies frequent falls, Denies weakness, Denies weight gain and Denies weight loss ENT Denies dizziness Card Reports chest pain, Reports chest pain at rest, Reports chest pain with activity, Reports leg edema, Denies lightheadedness, Reports palpitations, Reports dyspnea, Reports dyspnea on exertion and Reports orthopnea Resp Denies cough, Reports dyspnea and Reports dyspnea on exertion GI Denies bloating and Denies change in bowel habits Musc Denies muscle weakness, Denies numbness and Denies tingling Neuro Denies dizziness, Denies frequent falls, Denies numbness, Denies tingling and Denies weakness Endo Denies fatigue and Reports palpitations Physical Exam Vital Signs: Last Vital Signs Pulse 62 04/16/25 10:39 BP 110/62 04/16/25 10:39 BMI result Body Mass Index 28.4 GENERAL APPEARANCE: in no acute distress, pleasant. NECK: no carotid bruit, no jugular venous distention. SKIN: no suspicious lesions, warm and dry. HEART: no murmurs, regular rate and rhythm. LUNGS: clear to auscultation bilaterally. ABDOMEN: soft, nontender. EXTREMITIES: no edema. PERIPHERAL PULSES: equal. NEUROLOGIC: No gross deficits, AAO X 3 Office Procedures EKG Details: Sinus rhythm 62 beats per minute, right bundle-branch block, left anterior fascicular block, left ventricular hypertrophy, QTC 448 milliseconds. [id number], Complete Assessment & Plan Assessment & Plan (1) Chest pain: Code(s): R07.9 - Chest pain, unspecified Category: Medical (2) Bifascicular block: Code(s): I45.2 - Bifascicular block Category: Medical Plan Pleasant 69 year gentleman presenting for assessment of chest discomfort. He has background history of hyperlipidemia. He has bifascicular block on EKG. I will arrange echocardiography to rule out any structural issues/wall motion abnormalities. We will arrange stress MIBI to rule out obstructive coronary disease. Once this testing is done then we will see him in the office in the coming months. I have advised him to start taking baby aspirin in the meantime. He is already on atorvastatin 20 mg daily. Follow up after above testing. Thank you for allowing me to participate in the care of your patient. Please feel free to contact me if you have any questions. Orders: Orders NM cardiolite stress test Today R07.9 - Chest pain, unspecified CA stress test Today R07.9 - Chest pain, unspecified CA echo transthorac w con Today R07.9 - Chest pain, unspecified Medications: New aspirin (Adult Aspirin Regimen) 81 mg PO DAILY 1 tab 0RF R07.9 - Chest pain, unspecified Coding Level of Care Code New Pt Level 4 (91291) Diagnoses Chest pain R07.9 Bifascicular block I45.2 CPT Codes EKG - CPT: 40666-[id number], Complete ([id number])
[2025-04-16 10:39] VITALS: BP 110/62; PULSE 62; BMI 28.4
--- OUTSIDE RECORDS SUMMARY | 2025-04-16 20:32 | XMS_ITS | Encounter Summary ---
Author Organization [employer] Address 75 [facility] 7t [place] [address] Care Team Providers Care Ocular Pathologist Name Role Phone Belinda Figueroa MD Primary Care Provide r Reason for Visit * Reason Comments Med Refill Encounter Details Date Type Department Care Team ([facility] st Contact Info) Description 11/17/2023 Refill [facility] MEDICINE [address] [place], [place] [phone] Belinda Figueroa MD [address] [place], [place] [phone] Erectile dysfunction, unspecified erectile dysfunction type Social [...] Time PHQ-9 Depression Total Score: 0 07/05/19 10:59 AM EST documented as of this encounter Care Teams Ocular Pathologist Relationship Specialty Start Date End Date Belinda Figueroa MD [address] [place] [phone] PCP - General Family Medicine 05/03/18 documented as of this encounter
--- OUTSIDE RECORDS SUMMARY | 2025-04-16 20:32 | XMS_ITS | Encounter Summary ---
Author Organization [employer] Address [address] [facility] 7t [place] [address] Care Team Providers Care Chief Relay Tester Name Role Phone Belinda Figueroa MD Primary Care Provide r Reason for Visit * Reason Comments Med Refill Encounter Details Date Type Department Care Team ([facility] st Contact Info) Description 05/02/2022 Refill [facility] MEDICINE [address] [place] [address] Ya Carballo FNP [address] [place], [place] [phone] Social History Tobacco Use Types Packs/Day Years [...] on filedocumented in this encounter Care Teams Chief Relay Tester Relationship Specialty Start Date End Date Belinda Figueroa MD [address] [place] [phone] PCP - General Family Medicine 05/03/18 documented as of this encounter
--- OUTSIDE RECORDS SUMMARY | 2025-04-16 20:32 | XMS_ITS | Clinical Summary ---
Author Organization [employer] Address [address] [facility] 7t [place] [address] Care Team Providers Care Social Science Instructor Name Role Phone Belinda Figueroa MD Primary Care Provide r Allergies Active Allergy Reactions Criticality Noted Date Comments Fish Protein-Containing Drug Products 07/22/2021 Lactose 07/22/2021 Medications cyclobenzaprine (Flexeril) 10 MG tabletIndications :Chronic right shoulder pain TAKE 1 TABLET BY MOUTH TWICE DAILY IN THE MORNING AND AT BEDTIME 60 tablet 05/01/20 23 Active atorvastatin (Lipitor) 40 MG tabletIndications :Dyslipidemia Take 1 tablet (40 mg) by mouth Once per day. 90 tablet 1 5 12:46 PM EST 12/13/19 25 026 Active omeprazole (PriLOSEC) [address] capsuleIndication s:Epigastric pain Take 1 capsule (40 mg) by mouth before breakfast and before evening meal. Do not crush or chew. 90 capsule 1 12/13/19 25 Active sildenafil (Viagra) 50 MG tabletIndications :Erectile dysfunction, unspecified erectile dysfunction type TAKE 1 TABLET 1 HOUR BEFORE SEXUAL RELATIONS ONCE DAILY NEEDED. 25 tablet 2 5 12:46 PM EST 12/13/19 25 Active cholecalciferol (D3-1000) 25 MCG (1000 UT) capsuleIndication s:Dyslipidemia Take 1 capsule (25 mcg) by mouth Once per day. 90 capsule 1 5 12:46 PM EST 12/13/19 25 Active acetaminophen (Tylenol 8 Hour) 650 MG ER tabletIndications :Primary osteoarthritis of right shoulder TAKE 2 TABLETS BY MOUTH EVERY 8 HOURS NEEDED FOR MILD PAIN, DO NOT BREAK, CRUSH, DISSOLVE OR CHEW 90 tablet 01/18/20 25 Active famotidine (Pepcid) 20 MG tablet TAKE 1 TABLET BY MOUTH TWICE DAILY 180 tablet 1 12:46 PM EST 04/10/20 25 Active famotidine (Pepcid) 20 MG tablet TAKE 1 TABLET BY MOUTH TWICE DAILY 180 tablet 1 10/03/19 25 025 Discontinued Active Problems Problem Noted [...] Encounters Date Type Department Care Team Description 04/10/2025 Refill [facility] [address] [place] [address] Belinda Figueroa MD 03/28/2025 Telephone [facility] [address] [place] [address] Belinda Figueroa MD INES RECALL 03/19/2025 Telephone [facility] [address] [place], [place] [phone] Belinda Figueroa MD Chart Prep 03/13/2025 Patient Outreach [facility] [address] [place] [address] Belinda Figueroa MD Pre-visit Planning ([facility] unable to reach) 01/17/2025 Refill [facility] [address] [place] [address] Belinda Figueroa MD Primary osteoarthritis of right shoulder from Last 3 Months Immunizations Immunization Administration Dates Next Due Influenza injectable quadriv alent preservative free 07/05/2023 Influenza, High Dose Seasona l, Preservative Free 03/19/2025 Moderna Covid-19 Vaccine 12+ 11/18/2021, 07/15/2021,09/18/2020,2020 Pfizer Covid-19 Vaccine 12+ 07/05/2023 Pneumococcal Conjugate PCV 20 07/05/2023 Tdap 10/06/2020,05/03/2018 Zoster, Recombinant 12/12/2024 Social History Tobacco Use Types Packs/Day Years [...] the past 12 months, has t he [employer], gas, oil or water company threatened to [...] 12/12/2024 10:17 AM EDT Plan of Treatment Health Maintenance Due Date Last Done Comments CT Colonography 1956 FIT DNA/Cologuard 1956 FIT 1956 FOBT 1956 Sigmoidoscopy 1956 COVID-19 Vaccine ( season) 2025 07/05/2023, 11/18/2021, 07/15/2021, Additional history exists Zoster Vaccines (2 of 2) 02/06/2025 12/12/2024 [...] Completed 07/05/2023 Hepatitis C Screening Completed 10/30/2023 Influenza Vaccine Completed 03/19/2025, 07/05/2023 HIB Vaccines Aged Out No longer eligi [...] Date/Time Associated Diagnosis Comments HM COLONOSCOPY Routine 04/01/2024 HEPATITIS C ANTIBODY Routine 10/30/2023 3:31 PM EDT LIPID PANEL, STANDARD Routine 08/12/2021 10:32 AM EDT from Last 3 Months or Most Recently Relevant to Health Maintenance Results * Hm Colonoscopy (04/01/2024) Pathologist [facility] Colonoscopy Normal Normal Narrative Angela Huitron - 04/01/2024 Recommended 10 years. See see external hospital admission note on 04/02/2024 us Historical Provider MD HEALTH MAINTENANCE Final Result * Hepatitis C Ab (10/30/2023 3:31 PM EDT) Pathologist [facility] Hepatitis C Antibody Nonreactive Nonreactive [facility] Comment:Antibodies to HCV no t detected; does not exclude early acuteHCV infection. 10/30/2023 3:31 PM EDT 10/30/2023 3:31 PM EDT us Generic External Data Provider LAB BLOOD ORDERAB LES Final Result Performing Organization Address City/State/[facility] Co de Phone Number [facility] [address] [place] [phone] * (ABNORMAL) LIPID PANEL, STANDARD (08/12/2021 10:32 AM EDT) Pathologist [facility] Chol/HDLC Ratio 5.4(H) <5.0 (calc) [facility] [...] factors. LDL-C is now calculated using the Kg-Jeremiah calculation, which is a validated novel method providing better accuracy than the Friedewald equation in the estimation of LDL-C. Kg FOSTER et al. DANA. 2013;310(19): 9150-1044 (http://education.[employer]/faq/FVN901) Non-HDL Cholesterol 166(H) <130 mg/dL (calc) [facility] Comment: For patients with diabetes plus 1 major ASCVD risk factor, treating to a non-HDL-C goal of <100 mg/dL (LDL-C of <70 mg/dL) is considered a therapeutic option. Triglycerides 163(H) <150 mg/dL [facility] 08/12/2021 10:3 2 AM EDT us Belinda Sarabia MD LAB BLOOD ORDERABLES Final Result [facility] [address] from Last 3 Months or Most Recently Relevant to Health Maintenance Insurance [facility] MEDICARE ADVANTAGE Care Teams Social Science Instructor Relationship Specialty Start Date End Date Belinda Figueroa MD [address] [place] [phone] PCP - General Family Medicine 05/03/18
--- OUTSIDE RECORDS SUMMARY | 2025-04-16 20:32 | XMS_ITS | Encounter Summary ---
Author Organization [employer] Address [address] [facility] 7t [place] [address] Care Team Providers Care Legal Counsel Name Role Phone Belinda Figueroa MD Primary Care Provide r Reason for Visit * Reason Comments Med Refill Encounter Details Date Type Department Care Team ([facility] st Contact Info) Description 05/24/2024 Refill [facility] [address] [place], [place] [phone] Belinda Figueroa MD [address] [place] [address] Erectile dysfunction, unspecified erectile dysfunction type Social [...] documented as of this encounter Care Teams Legal Counsel Relationship Specialty Start Date End Date Belinda Figueroa MD [address] [place] [phone] PCP - General Family Medicine 05/03/18 documented as of this encounter
--- OUTSIDE RECORDS SUMMARY | 2025-04-16 20:32 | XMS_ITS | Encounter Summary ---
Author Organization [employer] Address [address] [facility] 7t [place] [address] Care Team Providers Care Numerical Control Operator Name Role Phone Belinda Figueroa MD Primary Care Provide r Encounter Details Date Type Department Care Team ([facility] st Contact Info) Description 02/02/2023 Orders Only [facility] [address] [place], [place] [phone] Provider, Rachel, Social History Tobacco Use Types Packs/Day Years [...] Priority Date/Time Associated Diagnosis Comments COLONOSCOPY Routine 08/23/2018 documented in this encounter Results * Colonoscopy (08/23/2018) Historical Provider HEALTH MAINTENANCE Final Result documented in this encounter Visit Diagnoses Not on filedocumented in this encounter Care Teams Numerical Control Operator Relationship Specialty Start Date End Date Belinda Figueroa MD [address] [place] [address] PCP - General Family Medicine 05/03/18 documented as of this encounter
--- OUTSIDE RECORDS SUMMARY | 2025-04-16 20:32 | XMS_ITS | Clinical Summary ---
Author Organization [facility] Address [address] [facility] [address] [place] [phone] Phone Care Team Providers Care Camera Supervisor Name Role Phone Belinda Sorensen MD Primary [...] needed for nausea. 10 tablet 3 Active Encounters Date Type Department Care Team Description 04/08/2025 10:20 AM EST Office Visit [facility] at [address] [phone] Salazar Ramirez PA-C Osteoarthritis of right shoulder, unspecified osteoarthritis type (Primary Dx) 04/07/2025 11:35 AM EST - 04/07/2025 2:35 PM EST Emergency [facility] [address] [place], [place] [phone] Discharge Disposition: Home or Self Care from Last 3 Months Social History Tobacco Use Types Packs/Day Years [...] on file 09/23/2022 No 09/23/2022 No 09/23/2022 Food Answer Date Recorded Within the past 6 months we worried whether our food would run out before we got money to buy more. Never True 04/07/2025 Within the past 6 months the food we bought just didn't last and we didn't have enough money to get more. Never True Residential Stability Answer Date Recor ded What is your housing situation today? I have glenny sing 04/07/2025 How many times have you move d in the past 12 months? Zero (I did not move) 04/07/2025 Paying for Meds Answer Date Recorded Do you have trouble paying for medicines? No 04/07/2025 Paying Utility Bills Answer Date Record ed Do you have trouble paying your heating or elect ricity bill? No 04/07/2025 Transportation Answer Date Recorded Has the lack of transportati on kept you from medical appointments or from getting medications? No 04/07/2025 Digital Access Answer Date Recorded No 04/07/2025 Yes 04/07/2025 Do you have reliable internet access at home? Ye s 04/07/2025 Do you have a device (e.g., phone, tablet, computer) with a working camera? Yes 04/07/2025 Intimate Partner Violence Answer Date R ecorded Are you denied basic needs s uch as food, clothing, or medical care? No 04/07/2025 In the past 12 months have y ou been in a relationship with a person who hurts, threatens, or tries to control you? No 04/07/2025 Are you denied basic needs s uch as food, clothing, or medical care? No 04/07/2025 In the past 12 months have y ou been in a relationship with a person who hurts, threatens, or tries to control you? No 04/07/2025 Sex and Gender Information Value Date Recorded Sex Assigned at Male 07/20/2017 2:16 PM EST Legal Sex Male 9:53 PM EDT Gender Identity Male 07/20/2017 2:16 PM EST Sexual Orientation Straight 07/20/2017 2: 16 PM EST Last Filed Vital Signs Vital Sign Reading Time Taken Comments Blood Pressure 142/78 04/07/2025 2:34 PM EST Pulse 58 04/07/2025 2:34 PM EST Temperature 36.2 C (97.1 F) 04/07/2025 2:34 PM EST Respiratory Rate 18 04/07/2025 2:34 PM EST Oxygen Saturation 99% 04/07/2025 2:34 PM EST Inhaled Oxygen Concentration - - Weight 63.5 kg (140 lb) 04/07/2025 11:24 AM EST Height 151 cm (4' 11.45 ) 04/07/2025 11:24 AM ES T Body Mass Index 27.85 04/07/2025 11:24 AM EST Plan of Treatment Upcoming Encounters Date Type Department Care Team (Late st Contact Info) Description 05/21/2025 11:00 AM EST Office Visit [facility] & [facility] Medicine [address] [place] [phone] Tirso Toure PA-C [address] [place] [address] [place] [address] [email or web address] Health Maintenance Due Date Last Done Comments DEPRESSION SCREENING 1968 HEPATITIS C SCREENING 1974 COLOGUARD 2001 COLONOSCOPY 2001 COLORECTAL CANCER SCREENING 2001 FIT TEST 2001 FOBT 2001 SIGMOIDOSCOPY 2001 VIRTUAL COLONOSCOPY 2001 PNEUMOCOCCAL VACCINES (50+ years) (1 of 1 - PCV) 2006 ZOSTER VACCINES (1 of 2) 2006 INFLUENZA VACCINE (#1) 2024 COVID-19 VACCINE (1 - 2024-2 6 season) 2025 SCREENING FOR DIABETES 12/13/2025 12/13/2022 LIPID PANEL 08/12/2026 08/12/2021 Adult Td,Tdap Booster 10/06/2030 10/06/2020 , 05/03/2018 RSV VACCINE (1 - 1-dose 75+ series) 08/27/2031 SMOKING STATUS SCREENING (On ce After 26 Yrs) Completed 04/07/2025 HEPATITIS A VACCINES Aged Out No long er eligible based on patient's age to complete this topic HIB VACCINES Aged Out No longer eligi ble based on patient's age to complete this topic MENINGOCOCCAL VACCINES (ACWY) Aged Out No longer eligible based on patient's age to complete this topic MENINGOCOCCAL VACCINES (B) Aged Out N o longer eligible based on patient's age to complete this topic Medical Devices Not on file Procedures Procedure Name Priority Date/Time Associated Diagnosis Comments XR SHOULDER 2 VIEWS (RIGHT) STAT 04/07/2025 1:20 PM EST from Last 3 Months Results * XR SHOULDER 2 VIEWS (RIGHT) (04/07/2025 1:20 PM EST) Anatomical Region Laterality Modality Shoulder Right Computed Radiogr aphy 04/07/2025 1:43 PM EST Impressions 04/07/2025 1:45 PM EST No acute fracture. Chronic/degenerative findings. Narrative 04/07/2025 1:45 PM EST XR SHOULDER 2 OR MORE VIEWS (RIGHT) Referring clinician's provided indication for this examination in [facility]: Pain COMPARISON: XR SHOULDER 2 OR MORE VIEWS (RIGHT) FINDINGS: No fracture. Acromioclavicular moderate osteoarthritis. Inferior glenohumeral mild osteoarthritis. Rotator cuff interval moderate narrowing. Procedure Note Manohar Brown MD, MPH - 04/07/2025 XR SHOULDER 2 OR MORE VIEWS (RIGHT) Referring clinician's provided indication for this examination in [facility]:Pain COMPARISON: XR SHOULDER 2 OR MORE VIEWS (RIGHT) 2021- FINDINGS: No fracture. Acromioclavicular moderate osteoarthritis. Inferiorglenohumeral mild osteoarthritis. Rotator cuff interval moderatenarrowing. IMPRESSION: No acute fracture. Chronic/degenerative findings. Brisa Grace PA-C IMG XR UPPER EXTREMITY Final Result from Last 3 Months Insurance [employer] FULL Member Subscriber Plan / Payer (Ef fective 2022-Present) Name:Eldon Veronica Relation to Subscriber:Self Name:Eldon Veronica Payer ID:Not on file Group ID:Not on file Type:Medicaid Address: [address] MEDICARE REPLACEMENT [facility] FULL Member Subscriber Plan / Payer (Ef fective 2022-) Name:Eldon Veronica Relation to Subscriber:Self Name:Eldon Veronica Payer ID:Not on file Group ID:Not on file Type:Medicaid Address: [address] MEDICARE REPLACEMENT Member Subscriber Plan / Payer (Ef fective 2022-Present) Name:Eldon Veronica Relation to Subscriber:Self Name:Eldon Veronica Payer ID:Not on file Group ID:Not on file Type:Medicaid Address: [address] MEDICARE REPLACEMENT Member Subscriber Plan / Payer (Ef fective 2022-) Name:Eldon Veronica Relation to Subscriber:Self Name:Eldon Veronica Payer ID:Not on file Group ID:Not on file Type:Medicaid Address: [address] MEDICARE REPLACEMENT MEDICARE REPLACEMENT [employer] SAF[employer] NET FULL Member Subscriber Plan / Payer (Ef fective 2022-Present) Name:Eldon Veronica Relation to Subscriber:Self Name:Eldon Veronica Payer ID:Not on file Group ID:Not on file Type:Medicaid Address: [facility] [address] MEDICARE REPLACEMENT Care Teams Camera Supervisor Relationship Specialty Start Date End Date Belinda Sorensen MD [address] [place] [phone] PCP - General Internal Medicine 12/15/21 Additional Source Comments The information contained in this document represents components of the legal health record. It is not the complete legal health record.[facility]
--- OUTSIDE RECORDS SUMMARY | 2025-04-16 20:33 | XMS_ITS | Encounter Summary ---
Author Organization [employer] Address [address] [facility] 7t [place] [address] Care Team Providers Care Automotive Collision Repair Instructor Name Role Phone Belinda Figueroa MD Primary Care Provide r Encounter Details Date Type Department Care Team ([facility] st Contact Info) Description 12/13/2022 Orders Only [facility] [address] [place], [place] [phone] Roxy Galaviz LPN Social History Tobacco Use [...] on filedocumented in this encounter Care Teams Automotive Collision Repair Instructor Relationship Specialty Start Date End Date Belinda Figueroa MD [address] [place], [place] [phone] PCP - General Family Medicine 05/03/18 documented as of this encounter
--- OUTSIDE RECORDS SUMMARY | 2025-04-16 20:33 | XMS_ITS | Encounter Summary ---
Author Organization [employer] Address [address] [facility] 7[address] [place] [address] Care Team Providers Care Solid Waste Truck Driver Name Role Phone Belinda Figueroa MD Primary Care Provide r Reason for Visit * Reason Comments Med Refill Encounter Details Date Type Department Care Team ([facility] st Contact Info) Description 10/06/2022 Refill [facility] [address] [place], [place] [phone] Belinda Figueroa MD [address] [place], [place] [phone] Social History Tobacco Use Types Packs/Day Years [...] on filedocumented in this encounter Care Teams Solid Waste Truck Driver Relationship Specialty Start Date End Date Belinda Figueroa MD [address] [place], [place] [phone] PCP - General Family Medicine 05/03/18 documented as of this encounter
== END 2025-04-16 11:08 | disposition home or self-care (01) ==
LOC: HO.HCS 10:32
PROVIDERS: PCP Internal Medicine; Visit Provider Internal Medicine Cardiovascular Disease
DX: R07.9 Chest pain, unspecified (principal); I45.2 Bifascicular block
CPT/HCPCS: 93010; 99204

== ENCOUNTER → 2025-04-16 10:32 | Outpatient (BNVA) | payer MEDICARE, SELFPAY | PROVIDERS: PCP Internal Medicine; Visit Provider Internal Medicine Cardiovascular Disease | DX: R07.9 Chest pain, unspecified (principal); I45.2 Bifascicular block; E78.5 Hyperlipidemia, unspecified | CPT/HCPCS: 93005; 99202 ==